=== PATIENT | male | born 1945 | race Caucasian/White ===

== ENCOUNTER 2020-02-27 10:59 | Emergency (ER) | payer MEDICARE, SELFPAY ==
--- NOTE | 2020-02-27 11:06 | ED.EAR ---
HPI - Ear Problem General Chief complaint: Ear Stated complaint: Ear Ache Time Seen by Provider: 02/27/20 11:16 Source: patient and RN notes reviewed Mode of arrival: ambulatory Limitations: no limitations History of Present Illness HPI Narrative: 74-year-old male presents with concern for right ear pain. Also reports swelling beneath his right ear. He denies nasal congestion, rhinorrhea, discharge from the ear, decreased hearing. Reports the swelling gets larger after he eats, and gets smaller with a hot compress. He denies any drooling, difficulty swallowing, difficulty speaking, sore throat. MD Complaint: ear pain Related Data Allergies Allergy/AdvReac Type Severity Reaction Status Date / Time ciprofloxacin Allergy Intermediate RASH Verified 02/27/20 11:15 Review of Systems Review of Systems: Narrative: CONSTITUTIONAL: Denies malaise, chills, sweats, or fever. EYES: Denies visual changes, redness, or discharge. ENT: Denies rhinorrhea, congestion, sinus pain, difficulty swallowing, difficulty speaking, and sore throat. Reports right ear pain. Reports swelling beneath right ear with tenderness, redness CARDIOVASCULAR: Denies chest pain, palpitations, or edema. RESPIRATORY: Denies cough or dyspnea. GASTROINTESTINAL: Denies abdominal pain, nausea, vomiting, diarrhea SKIN: Denies rash or itching. MUSCULOSKELETAL: Denies myalgia. NEUROLOGIC: Denies headache. All systems reviewed & are unremarkable except as noted in HPI and below PMFSH Social History Social History Gender identity (if verbalized by the patient): Male Comments At time of signature, agree with nursing past medical, surgical, social and family history. There is no relevant family history pertinent to the presenting complaint Exam Narrative: Exam Narrative: GENERAL: Well-appearing, well-nourished, and in no acute distress. HEAD: Normocephalic EYES: PERRLA, conjunctivae clear ENT: Nares clear, turbinates pink, no discharge. Mucous membranes moist. TM pearly savage with sharp light reflex bilaterally; no tragal tenderness. Oropharynx not erythematous without lesions. Right tonsils enlarged and without exudate, no drooling, no hoarseness, no trismus, uvula midline. NECK: Supple. Right parotid swelling, tenderness, mild erythema CHEST: Clear to auscultation, breath sounds equal. No wheezing, rhonchi, rales, or stridor. No respiratory distress, speaks in full sentences. HEART: Regular rate and rhythm. No murmur heard. SKIN: Warm, dry, no rash. NEURO: Alert and oriented x3. PSYCH: Normal mood and affect Course Course Emergency Course: Patient is aware of diagnosis, understands and agrees to treatment plan. Anticipatory guidance given. Patient agrees to follow-up as directed and is aware of reasons to seek care at the emergency department. Portions of this record may have been created with voice recognition software Vital Signs Vital signs: Vital Signs Temperature 99.4 F 02/27/20 11:11 Pulse Rate 110 H 02/27/20 11:11 Respiratory Rate 16 02/27/20 11:11 Blood Pressure 137/98 H 02/27/20 11:11 Pulse Oximetry 96 02/27/20 11:11 Temperature 99.4 F 02/27/20 11:11 Pulse Rate 110 H 02/27/20 11:11 Respiratory Rate 16 02/27/20 11:11 Blood Pressure 137/98 H 02/27/20 11:11 Pulse Oximetry 96 02/27/20 11:11 Reviewed. Medical Decision Making MDM Narrative Medical decision making narrative: Differential diagnosis considered: Parotiditis, parotid gland obstruction, Lora virus, strep pharyngitis, allergic rhinitis, upper respiratory tract infection, sinusitis, rhinosinusitis, nasopharyngitis. viral pharyngitis, otitis media, otitis externa, pneumonia, bronchitis, viral cough syndrome, viral syndrome, and influenza. Exam findings show no acute concerns or changes; patient is non-toxic appearing and is in no distress. Patient is appropriate for outpatient treatment and follow-up. Vital Signs Vital Signs: Vital Signs Temperature 99.4 F 1
[2020-02-27 11:11] VITALS: BP 137/98; PULSE 110; RESP 16; TEMP 37.4; O2SAT 96
== END 2020-02-27 11:26 | disposition home or self-care (01) ==
LOC: EXPCOLL 11:05
PROVIDERS: Emergency Provider Nurse Practitioner; PCP Family Medicine
DX: K11.8 Other diseases of salivary glands (principal); I25.2 Old myocardial infarction; Z95.5 Presence of coronary angioplasty implant and graft
CPT/HCPCS: 99213; G0463

== ENCOUNTER 2020-06-08 16:00 | Emergency (ER) | payer MEDICARE, SELFPAY | END 2020-06-08 16:20 | disposition left against medical advice (07) | LOC: EXPCOLL 16:04 | PROVIDERS: Emergency Provider Nurse Practitioner; PCP Family Medicine | DX: Z53.21 Procedure and treatment not carried out due to patient leaving prior to being seen by health care provider (principal) | CPT/HCPCS: 99199 ==

== ENCOUNTER 2020-06-08 16:44 | Emergency (ER) | payer MEDICARE, SELFPAY ==
[2020-06-08] VITALS (18 sets, daily range): BP systolic 126–188; BP diastolic 62–112; PULSE 75–101; RESP 15–23; TEMP 36.8; O2SAT 96–100
--- NOTE | 2020-06-08 16:55 | ECG_ITS ---
Measurements Intervals [place] Rate: 94 P: 55 DC: 185 QRS: 40 QRSD: 98 T: 63 QT: 350 QTc: 438 Interpretive Statements SINUS RHYTHM BASELINE ARTIFACT- AVL NORMAL ECG Electronically Signed On 06-08-2020 17:23:14 HEEL CASER by Kirt Aly D.O.
[2020-06-08] MEDS: hydroCHLOROthiazide 25 MG TABLET PO (17:13)
[2020-06-08] MEDS: amLODIPine BESYLATE 5 MG TABLET 10 MG PO (17:13)
--- NOTE | 2020-06-08 17:16 | ED.GENADULT ---
HPI - General Adult General Chief complaint: Recheck/Abnormal Lab/Rx Stated complaint: high blood pressure Time Seen by Provider: 06/08/20 16:47 Source: patient History of Present Illness HPI narrative: Patient is 74 y/o male complaining of hypertension. He states that he was checking this BP and it was 160s systolic before he came to the hospital. He states that he feels well otherwise. He denies any chest pain, SOB or headache. He states that he was on some BP medication but stopped taking them a few months ago because he was having side effects. Related Data Allergies Allergy/AdvReac Type Severity Reaction Status Date / Time ciprofloxacin Allergy Intermediate RASH Verified 02/27/20 11:15 Review of Systems Constitutional: Constitutional: Denies chills, Denies fever(s), Denies headache(s) and Denies weakness Eyes: Eyes: Denies blurry vision ENT: Denies headache(s) and Denies neck pain Cardiovascular: Cardiovascular: Denies chest pain and Denies dyspnea Respiratory: Respiratory: Denies cough and Denies dyspnea Gastrointestinal: Gastrointestinal: Denies abdominal pain, Denies diarrhea, Denies nausea and Denies vomiting Genitourinary: Genitourinary: Denies hematuria and Denies dysuria Musculoskeletal: Musculoskeletal: Denies back pain and Denies neck pain Neurologic: Denies headache(s) and Denies weakness PMFSH Social History Social History Gender identity (if verbalized by the patient): Male Exam Const: General: no acute distress and well developed Orientation/consciousness: oriented to person, oriented to place, oriented to time and patient oriented x3 HENMT: Head: normocephalic Ears: external ears normal General nose exam: Normal external nose present Eyes: General: appearance normal, both eyes and all related structures Conjunctivae: conjunctivae normal Neck: Neck: normal visual inspection and full ROM Chest: Chest palpation & inspection: normal inspection of the chest and no tenderness Resp: Effort & Inspection: normal respiratory effort Auscultation: clear to auscultation bilaterally Cardio: Rate: regular rate Rhythm: regular rhythm GI: GI Palp: No abdominal tenderness and Yes Soft to palpation Skin: General skin exam: normal color and turgor normal Neuro: General: oriented to person, oriented to place, oriented to time and patient oriented x3 Cognition (Neuro): normal cognition Extrem: General: normal to inspection, full ROM and no pedal edema Psych: Appearance: grossly normal Mental Status: mental status grossly normal Affect: normal affect Course Vital Signs Vital signs: Vital Signs Temperature 36.8 C 06/08/20 16:50 Pulse Rate 101 H 06/08/20 16:50 Respiratory Rate 18 06/08/20 16:50 Blood Pressure 188/112 H 06/08/20 16:50 Pulse Oximetry 98 06/08/20 16:50 Temperature 36.8 C 06/08/20 16:50 Pulse Rate 78 06/08/20 20:41 Respiratory Rate 20 06/08/20 20:41 Blood Pressure 138/62 06/08/20 20:41 Pulse Oximetry 99 06/08/20 20:41 Medical Decision Making Vital Signs Vital Signs: Vital Signs Temperature 36.8 C 06/08/20 16:50 Pulse Rate 101 H 06/08/20 16:50 Respiratory Rate 18 06/08/20 16:50 Blood Pressure 188/112 H 06/08/20 16:50 Pulse Oximetry 98 06/08/20 16:50 Temperature 36.8 C 06/08/20 16:50 Pulse Rate 78 06/08/20 20:41 Respiratory Rate 20 06/08/20 20:41 Blood Pressure 138/62 06/08/20 20:41 Pulse Oximetry 99 06/08/20 20:41 Lab Data Result diagrams: 06/08/20 17:03 06/08/20 17:03 Labs: Lab Results 06/08/20 06/08/20 Range/Units 17:03 17:03 WBC 11.8 H (4.5-10.0) K/mm3 RBC 4.94 (4.6-6.20) M/mm3 Hgb 15.3 (14.0-18.0) g/dL Hct 45.4 (42.0-52.0) % MCV 91.9 (80-100) fl MCH 31.0 (26-34) pg MCHC 33.7 (32-36) g/dl RDW 13.5 (11.5-14.5) % Plt Count 229 (150-375) k/mm3 MPV 10.6 H (7.4-10.4
[2020-06-08 17:23] LABS: Basophils Absolute Auto 0.1 K/mm3 (0.0-0.1); Basophils Percent Auto 0.4 % (0.2-1.2); Eosinophils Absolute Auto 0.4 K/mm3 (0-0.3); Eosinophils Percent Auto 3.5 % (0-4.4); Hematocrit 45.4 % (42.0-52.0); Hemoglobin 15.3 g/dL (14.0-18.0); Immature Granulocyte Absolute 0.06 K/mm3 (0.00-0.031); Immature Granulocyte Percent A 0.5 % (0-0.5); Lymphocytes Absolute Auto 2.18 K/mm3 (0.9-3.2); Lymphocytes Percent Auto 18.6 % (18.3-44.2); Mean Corpuscular HGB Conc 33.7 g/dl (32-36); Mean Corpuscular Volume 91.9 fl (80-100); Mean Platelet Volume 10.6 fl (7.4-10.4); Monocytes Percent Auto 8.3 % (2.6-8.5); Neutrophils Absolute Auto 8.1 K/mm3 (1.3-6.7); Neutrophils Percent Auto 68.7 % (45.5-73.1); Platelet Count Result 229 k/mm3 (150-375); Red Blood Count 4.94 M/mm3 (4.6-6.20); Red Cell Distribution Width 13.5 % (11.5-14.5); White Blood Count 11.8 K/mm3 (4.5-10.0)
[2020-06-08 17:24] LABS: Anion Gap 5 mmol/L (8-16); Blood Urea Nitrogen 18 mg/dL (9-20); Calcium 8.3 mg/dL (8.4-10.2); Carbon Dioxide 29 mmol/L (22-30); Chloride 103 mmol/L (98-107); Estimated CRCL calculation 68 ml/min; Estimated Glomerular Filt Rate > 60; Glucose 126 mg/dL (75-110); Potassium 3.8 mmol/L (3.4-5.0); Sodium 137 mmol/L (137-145)
== END 2020-06-08 20:43 | disposition home or self-care (01) ==
PROVIDERS: Emergency Provider Emergency Medicine; PCP Family Medicine
DX: I10 Essential (primary) hypertension (principal)
CPT/HCPCS: 36415; 80048; 85025; 93005; 99283; A9270

== ENCOUNTER 2021-12-01 14:42 | Outpatient (CLI) | payer MEDICARE, SELFPAY ==
--- NOTE | 2021-12-01 | ECG_ITS ---
Measurements Intervals [place] Rate: 84 P: 70 [place]: 187 QRS: 46 QRSD: 95 T: 72 QT: 358 QTc: 424 Interpretive Statements SINUS RHYTHM EARLY PRECORDIAL R/S TRANSITION BASELINE WANDER- AVR, AVL, AVF BORDERLINE ECG Electronically Signed On 12-01-2021 15:31:26 CDT by Kirt Aly D.O.
== END 2021-12-01 14:43 | disposition home or self-care (01) ==
PROVIDERS: PCP Family Medicine; Visit Provider Nurse Practitioner Adult Health
DX: R42 Dizziness and giddiness (principal); I95.1 Orthostatic hypotension
CPT/HCPCS: 93005

== ENCOUNTER 2023-03-25 16:53 | Emergency (ER) | payer MEDICARE, SELFPAY ==
[2023-03-25] VITALS (8 sets, daily range): BP systolic 134–167; BP diastolic 81–98; PULSE 89–108; RESP 14–19; TEMP 36.4; O2SAT 95–98
--- NOTE | ~2023-03-25 | XR_ITS ---
EXAMINATION: XR chest 2V DATE: 03/25/2023 17:12 INDICATION: Chest pressure TECHNIQUE: frontal and lateral views of the chest were obtained. COMPARISON: Chest radiograph dated 06/21/2017 FINDINGS: Calcified nodules in the left lower lung zone and calcified left hilar lymph nodes consistent with ol d granulomatous disease. Minimal streaky bibasilar atelectasis/scarring. No marrow edema, pleural eff usion or pneumothorax. Heart size is normal. Tortuous thoracic aorta. Mild thoracic spondylosis. Left rotator cuff arthropathy. IMPRESSION: 1. Minimal streaky bibasilar atelectasis/scarring. No other acute cardiopulmonary disease. Reviewed, dictated and finalized at location A. IMPRESSION: 1. Minimal streaky bibasilar atelectasis/scarring. No other acute cardiopulmona ry disease.
--- NOTE | 2023-03-25 17:00 | ECG_ITS ---
Measurements Intervals [place] Rate: 95 P: 57 [place]: 186 QRS: 38 QRSD: 104 T: 61 QT: 343 QTc: 432 Interpretive Statements SINUS RHYTHM VENTRICULAR COUPLET AND VENTRICULAR PREMATURE COMPLEXES BORDERLINE ST ABNORMALITY- ANTEROLATERAL LEADS ABNORMAL ECG COMPARED TO ECG 12/01/2021 15:19:47 VENTRICULAR PREMATURE COMPLEXES NOW PRESENT Electronically Signed On 03-25-2023 18:41:32 CDT by Kirt Aly D.O.
[2023-03-25] MEDS: ASPIRIN 81 MG CHEWABLE TABLET 324 MG PO (17:05)
[2023-03-25 17:06] LABS: Basophils Absolute Auto 0.1 K/mm3 (0.0-0.1); Basophils Percent Auto 0.4 % (0.2-1.2); Eosinophils Absolute Auto 0.3 K/mm3 (0-0.3); Eosinophils Percent Auto 2.8 % (0-4.4); Hematocrit 44.2 % (42.0-52.0); Hemoglobin 14.8 g/dL (14.0-18.0); Immature Granulocyte Absolute 0.06 K/mm3 (0.00-0.031); Immature Granulocyte Percent A 0.5 % (0-0.5); Lymphocytes Absolute Auto 1.82 K/mm3 (0.9-3.2); Lymphocytes Percent Auto 15.4 % (18.3-44.2); Mean Corpuscular HGB Conc 33.5 g/dl (32-36); Mean Corpuscular Volume 92.5 fl (80-100); Mean Platelet Volume 10.9 fl (7.4-10.4); Monocytes Absolute Auto 0.9 K/mm3 (0.1-0.6); Monocytes Percent Auto 7.5 % (2.6-8.5); Neutrophils Absolute Auto 8.6 K/mm3 (1.3-6.7); Neutrophils Percent Auto 73.4 % (45.5-73.1); Platelet Count Result 176 k/mm3 (150-375); Red Blood Count 4.78 M/mm3 (4.6-6.20); Red Cell Distribution Width 13.5 % (11.5-14.5); White Blood Count 11.8 K/mm3 (4.5-10.0)
[2023-03-25 17:17] LABS: INR 1.1; Prothrombin Time 14.9 Seconds (11.1-14.7)
[2023-03-25 17:19] LABS: Alanine Aminotransferase 29 U/L (6-50); Albumin Level 4.2 g/dL (3.5-5.1); Alkaline Phosphatase 121 U/L (38-126); Anion Gap 10 mmol/L (8-16); Aspartate Amino Transferase 54 U/L (17-59); Bilirubin,Total 0.7 mg/dL (0.2-1.3); Blood Urea Nitrogen 28 mg/dL (9-20); Calcium 8.6 mg/dL (8.4-10.2); Carbon Dioxide 27 mmol/L (22-30); Chloride 102 mmol/L (98-107); Estimated CRCL calculation 43 ml/min; Estimated Glomerular Filt Rate 49; Glucose 128 mg/dL (65-110); Lipase 73 U/L (23-300); Potassium 3.9 mmol/L (3.4-5.0); Sodium 139 mmol/L (137-145)
[2023-03-25 17:30] LABS: Troponin I < 0.012 ng/mL (0.000-0.034)
--- NOTE | 2023-03-25 18:32 | ED.CHESTPAIN ---
HPI - Chest Pain General Chief Complaint: Chest Pain Stated Complaint: CP, subsided Time Seen by Provider: 03/25/23 17:15 Source: patient Mode of arrival: EMS Limitations: no limitations History of Present Illness HPI narrative: This is a 77-year-old male that presents to the emergency department for an episode of chest pressure today. Reports he was seated at home. He started to note some chest pressure. Reports he felt like he needed to belch. He took some [place]. His symptoms were eventually relieved over about 30 minutes. He called EMS for further evaluation. He denies any current symptoms. Denies shortness of breath or lower extremity edema. Related Data Allergies Allergy/AdvReac Type Severity Reaction Status Date / Time ciprofloxacin Allergy Intermediate RASH Verified 03/25/23 16:59 Review of Systems Review of Systems: CONSTITUTIONAL: Denies fever CARDIOVASCULAR: Reports chest pain. Denies edema RESPIRATORY: Denies dyspnea. All systems reviewed & are unremarkable except as noted in HPI and below PMFSH Past Medical History Medical History (Updated 03/25/23 @ 21:03 by Tayla Bartlett PA-C) History of coronary artery disease Social History Social History (Updated 03/25/23 @ 18:34 by Tayla Bartlett PA-C) Alcohol intake: former Gender identity (if verbalized by the patient): Male Exam Narrative: GENERAL: Well-appearing, well-nourished, and in no acute distress. HEAD: Normocephalic, atraumatic. EYES: EOMI. NECK: Supple. No JVD CHEST: Clear to auscultation. No respiratory distress. No wheezes rales or rhonchi HEART: Regular rate and rhythm. No murmur heard. Normal peripheral pulses. EXTREMITIES: Normal range of motion. No edema. SKIN: Warm, dry, no rash. NEURO: No focal deficits. Alert and oriented x3. PSYCH: Normal mood and affect Course Course Emergency Course: Patient was updated on workup and recommendation for admission for further evaluation of his symptoms. He declines to be admitted at this time Vital Signs Vital signs: Vital Signs Temperature 97.6 F 03/25/23 16:51 Pulse Rate 108 H 03/25/23 16:51 Respiratory Rate 16 03/25/23 16:51 Blood Pressure 160/87 H 03/25/23 16:51 Pulse Oximetry 98 03/25/23 16:51 Oxygen Delivery Room Air 03/25/23 16:51 Temperature 97.6 F 03/25/23 16:51 Pulse Rate 93 03/25/23 20:35 Respiratory Rate 15 03/25/23 20:35 Blood Pressure 167/95 H 03/25/23 20:35 Pulse Oximetry 96 03/25/23 20:35 Oxygen Delivery Room Air 03/25/23 16:51 MDM - Chest Pain MDM Narrative Medical decision making narrative: Patient presents to the emergency department for an episode of chest pain today. Patient with history of coronary artery disease. Tachycardic upon arrival, this normalized without intervention. Also hypertensive in the 160s systolic. No active chest pain while in the ED. CBC with mild leukocytosis to 11.8. Metabolic panel with mild elevation in creatinine to 1.4. EKG without acute ST changes and baseline and 3-hour troponin are negative. Chest x-ray without acute cardiopulmonary normality. Patient was updated on work-up. I did recommend that he be admitted for further evaluation due to his symptoms and history of coronary artery disease. Patient declines to be admitted at this time. I instructed him he should have close follow-up with his professional advisor for further evaluation. He also reported upon re-evaluation that he has been struggling with an abscessed tooth for some time. This is actively draining. I did take a culture. We will start patient on oral antibiotics. Was instructed to follow-up with his professional advisor and a dentist. He was encouraged to return to the ER at any time for further evaluation and management Differential Diagnosis Differential diagnosis: Likely stable angina, unstable angina pectoris, atypical chest pain and other (GERD) Lab Data Attestation: I reviewed the patient's lab results.
--- NOTE | 2023-03-25 19:16 | PC.NURSE ---
Assumed care of pt from BELKYS Friend at this time.
[2023-03-25 20:28] LABS: Troponin I < 0.012 ng/mL (0.000-0.034)
== END 2023-03-25 21:22 | disposition home or self-care (01) ==
PROVIDERS: Emergency Medicine; Emergency Provider Physician Assistant; PCP Family Medicine
DX: R07.89 Other chest pain (principal); K04.7 Periapical abscess without sinus; I25.10 Atherosclerotic heart disease of native coronary artery without angina pectoris; I49.3 Ventricular premature depolarization; R00.8 Other abnormalities of heart beat; R94.31 Abnormal electrocardiogram [ECG] [EKG]
CPT/HCPCS: 36415; 71046; 80053; 83690; 84484; 85025; 85610; 85730; 87070; 87205; 93005; 99284; A9270

== ENCOUNTER 2024-08-03 09:01 | Emergency (ER) | payer MEDICARE, SELFPAY ==
--- NOTE | ~2024-08-03 | XR_ITS ---
Clinical Indication: Cough PA and lateral views of the chest: Comparison: 03/25/2023 Findings: Calcified left basilar granuloma present. The lungs are otherwise clear, without evidence o f focal consolidation or pleural effusion. Cardiomediastinal silhouette is within normal limits. Bon es and soft tissues are unremarkable. Impression: No acute abnormality. Reviewed, dictated and finalized at location . Impression: No acute abnormality.
--- NOTE | ~2024-08-03 | XR_ITS ---
Supine and upright views of the abdomen Clinical history: Abdominal bloating Findings: Bowel gas pattern is nonspecific. No evidence for obstruction or free air. Probable left-si ded bowel contents, versus left-sided renal stones. Cholecystectomy clips noted. There is dextroscoli osis of the lumbar spine with diffuse degenerative disc disease. Impression: Possible left-sided renal stones versus bowel contents or other soft tissue calcific effusions. No acute reality evident. Reviewed, dictated and finalized at location . Impression: Possible left-sided renal stones versus bowel contents or other soft tissue chapito cific effusions. No acute reality evident.
[2024-08-03 09:13] VITALS: BP 159/106; PULSE 94; RESP 18; TEMP 36.5; O2SAT 97
--- NOTE | 2024-08-03 09:16 | ED.URI ---
HPI - URI/Sore Throat General Chief Complaint: Upper Respiratory Infection Stated Complaint: Sinus Time Seen by Provider: 08/03/24 09:16 Source: patient Mode of arrival: ambulatory Limitations: no limitations History of Present Illness HPI Narrative: 78-year-old male presents with complaint of abdominal bloating, feels full quickly when eating. Was able to have a bowel movement yesterday. States after eating breakfast today he is feeling of full again. Feels like he needs to belch but can not. Started with runny nose and cough 2-3 days ago. Afebrile. No chest pain or shortness of breath. Ambulatory with steady gait. All systems reviewed and negative except as noted above. Related Data Allergies Allergy/AdvReac Type Severity Reaction Status Date / Time ciprofloxacin Allergy Intermediate RASH Verified 08/03/24 09:19 Review of Systems Review of Systems: CONSTITUTIONAL: Denies fever, chills, or sweats. EYES: Denies visual changes, redness, or discharge. ENT: reports rhinorrhea. Denies congestion, sore throat, or otalgia. CARDIOVASCULAR: Denies chest pain, palpitations, or edema. RESPIRATORY: reports cough. Denies dyspnea. GASTROINTESTINAL: Reports abdominal bloating, constipation. Denies nausea, vomiting, or diarrhea. GENITOURINARY: Denies dysuria or hematuria. SKIN: Denies rash or itching. MUSCULOSKELETAL: Denies back pain, joint pain, or myalgia. NEUROLOGIC: Denies headache, numbness, or weakness. PSYCHIATRIC: Denies anxiety or depression. All other systems reviewed are negative, except as documented in HPI. [facility] Past Medical History Medical History (Updated 08/03/24 @ 09:56 by Marivel Vela NP) History of coronary artery disease Social History Social History (Updated 03/25/23 @ 18:34 by Tayla Bartlett PA-C) Alcohol intake: former Gender identity (if verbalized by the patient): Male Comments At time of signature, agree with nursing past medical, surgical, social and family history. There is no relevant family history pertinent to the presenting complaint. Exam Narrative: GENERAL: This is a well-nourished, well-developed patient, in no apparent distress. HEAD: normocephalic, atraumatic. EYES: PERRL. Sclera clear/white. Vision is grossly intact. EARS: External ears normal, auditory canals clear and without drainage, TMs normal without perforation. Hearing grossly intact. NOSE: External nose normal with clear nasal drainage THROAT: Mucous membranes moist, posterior pharynx clear. NECK: Neck supple, non-tender without lymphadenopathy, masses or thyromegaly. CARDIOVASCULAR: Regular rate and rhythm without murmurs, gallops, or rubs. RESPIRATORY: Clear to auscultation. Breath sounds equal bilaterally. No wheezes, rales, or rhonchi. GASTROINTESTINAL: Abdomen soft, non-tender, nondistended. Bowel sounds are hyperactive. No hepato-splenomegaly, or palpable masses. No guarding. SKIN: warm, Dry, intact with no suspicious lesions or rash, good texture and turgor. NEURO: awake, alert, and oriented to person, place and time. There were no obvious focal neurologic abnormalities. EXTREMITIES: No joint tenderness, effusion, or edema noted. Course Course Level of Care: Express Care Visit Vital Signs Vital signs: Vital Signs Temperature 36.5 C 08/03/24 09:13 Pulse Rate 94 08/03/24 09:13 Respiratory Rate 18 08/03/24 09:13 Blood Pressure 159/106 H 08/03/24 09:13 Pulse Oximetry 97 08/03/24 09:13 Oxygen Delivery Room Air 08/03/24 09:13 Temperature 36.5 C 08/03/24 09:13 Pulse Rate 94 08/03/24 09:13 Respiratory Rate 18 08/03/24 09:13 Blood Pressure 159/106 H 08/03/24 09:13 Pulse Oximetry 97 08/03/24 09:13 Oxygen Delivery Room Air 08/03/24 09:13 reviewed MDM - URI/Sore Throat MDM Narrative Medical decision making narrative: discussed x-ray results with patient. Viewed his KUB myself there is a large amount of stool present. Will prescribe MiraLax and stool softener. Will give simethicone for gas pain. Lungs clear to auscultation. No pain distress. Patient is alert, nontoxic. Recommend follow-up with If symptoms not improving. Please be advised this is a medical document. It is intended for [id number] communication. It is written in medical language and may contain unfamiliar abbreviations or verbiage. Medical documents are intended to carry relevant information, facts as evident, and the clinical opinion of the practitioner at the time of the encounter. This report may have been done utilizing a voice recognition system. Attempts have been made to correct errors. However, there may be uncorrected grammatical, spelling, and recognition errors present. The file time of this note does not necessarily represent the time of service. Lab Data Labs: Lab Results 08/03/24 Range/Units 09:43 POC Influenza A Ag Negative (Negative) POC Influenza B Ag Negative (Negative) POC SARS CoV-2 Ag Negative (Negative) Imaging Data My impression: agree with radiologist Radiologist's impression: Supine and upright views of the abdomen Clinical history: Abdominal bloating Findings: Bowel gas pattern is nonspecific. No evidence for obstruction or free air. Probable left-sided bowel contents, versus left-sided renal stones. Cholecystectomy clips noted. There is dextroscoliosis of the lumbar spine with diffuse degenerative disc disease. Impression: Possible left-sided renal stones versus bowel contents or other soft tissue calcific effusions. No acute reality evident. Discharge Plan Discharge Clinical Impression: Acute constipation, Acute viral sinusitis Patient Disposition: Home, Self-Care Condition: Stable Instructions: Antibiotic Form Additional Instructions: the x-ray of your abdomen showed constipation. The x-ray of your chest was normal. Take stool softener and MiraLax to treat constipation. Take Gas-X as needed to treat gas pains. Your cough and runny nose are viral. See your doctor if symptoms are not improving. Patient Language: Hebrew Prescriptions: New polyethylene glycol 3350 [Miralax] 17 gram/dose powder 17 g PO DAILY 4 Days Qty: 119 0RF docusate sodium [Stool Softener] 100 mg capsule 100 mg PO BID 30 Days Qty: 60 0RF benzonatate 200 mg capsule 200 mg PO TID PRN (Reason: cough) Qty: 20 0RF simethicone [Gas-X Extra Strength] 125 mg capsule 125 mg PO BID PRN (Reason: gas pain) Qty: 30 0RF Follow-up/Referrals: Magdi Booker MD [Primary Care Provider] - Time of Disposition: 09:56
[2024-08-03 09:45] LABS: EDCOVIDSCREEN Negative (Negative); EDINFLUASCREEN Negative (Negative); EDINFLUBSCREEN Negative (Negative)
== END 2024-08-03 10:08 | disposition home or self-care (01) ==
PROVIDERS: Emergency Provider Nurse Practitioner Family; PCP Family Medicine
DX: K59.00 Constipation, unspecified (principal); J01.90 Acute sinusitis, unspecified; Z20.822 Contact with and (suspected) exposure to COVID-19; I25.10 Atherosclerotic heart disease of native coronary artery without angina pectoris
CPT/HCPCS: 71046; 74018; 87426; 87804; 99213; G0463

== ENCOUNTER 2024-09-18 09:36 | Outpatient (CLI) | payer MEDICARE, SELFPAY ==
--- NOTE | ~2024-09-18 | CT_ITS ---
EXAMINATION: CT abdomen pelvis w con DATE: 09/18/2024 16:00 INDICATION: Epigastric pain. Elevated alkaline phosphatase and L2 levels. TECHNIQUE: Computed tomography (CT) of the abdomen and pelvis was performed with 100 mL Omnipaque-350 intravenous contrast. Automated exposure control and iterative reconstruction technique were employe d. The dose-length product was 390.71 mGy-cm. COMPARISON: None FINDINGS: Clinical scarring with mild bronchiectatic change at the posterior basilar segment of the right lower lobe along side the tortuous descending thoracic aorta. Calcified left lower lobe nodule consistent with old granulomatous disease. Heart size is normal. Atherosclerotic coronary artery calcific lesion . No pericardial or pleural effusion. 1.6 cm intraluminal nodular soft tissue density likely represen ting a large gallstone at the distal aspect of the common bile duct which is dilated to 2.1 cm in max imal diameter. There is moderate central intrahepatic biliary ductal dilation along with a tiny focus of pneumobilia in the nondependent left hepatic lobe. Cholecystectomy clips the gallbladder fossa. M ultiple splenic calcification consistent with old granulomatous disease. Pancreas and bilateral adren al glands are normal. There are multiple bilateral renal cysts measuring up to 2.8 cm in both kidneys . There is an additional 2.8 cm exophytic lesion at the interpolar region of the left kidney with sli ghtly higher density most likely proteinaceous/hemorrhagic cyst although solid neoplasm cannot be exc luded. 5.3 x 3.8 cm duodenal diverticulum arising anteriorly from the second portion the duodenum. Th ere are couple additional partially 4 cm diverticulum arising from the third portion of duodenum. The re is a fusiform infrarenal abdominal aortic aneurysm measuring up to 5.1 cm in maximal diameter. The re is calcified atherosclerosis without hematoma significant stenosis of the aorta and many of the ot her arteries. Small bowel and appendix are normal. There is marked colonic diverticulosis with a sigm oid and descending colon predominance and without adjacent inflammatory change to suggest diverticuli tis. A short loop of the proximal sigmoid colon extends into a moderate-sized left inguinal hernia. T here is a small fat-containing right inguinal hernia. Mild prostatomegaly with coarse calcifications. Bladder is normal. No free intraperitoneal gas or fluid. No pathologically enlarged abdominal or pel darnell lymphadenopathy. Lumbar levoscoliosis with severe spondylosis. 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 Moderate bilateral hip osteoart hritis. IMPRESSION: 1. Obstructing 1.6 cm likely gallstone at the distal common bile duct with moderate intra and extrahe patic biliary ductal dilation. 2. 5.1 cm fusiform infrarenal abdominal aortic aneurysm. 3. Short segment of nonobstructed proximal sigmoid colon extends into a moderate-sized left inguinal hernia. 4. Marked diverticulosis. 5. Multiple bilateral renal cysts with 2.8 cm exophytic lesion at the left kidney with slightly great er than simple fluid attenuation most likely proteinaceous/hemorrhagic cyst but would solid neoplasm could not be excluded. Could consider pre and postcontrast MRI or CT for further evaluation. Reviewed, dictated and finalized at location B. IMPRESSION: 1. Obstructing 1.6 cm likely gallstone at the distal common bile duct with mode rate intra and extrahepatic biliary ductal dilation. 2. 5.1 cm fusiform infrarenal abdominal aortic aneurysm. 3. Short segment of nonobstructed proximal sigmoid colon extends into a moderat e-sized left inguinal hernia. 4. Marked diverticulosis. 5. Multiple bilateral renal cysts with 2.8 cm exophytic lesion at the left kidn ey with slightly greater than simple fluid attenuation most likely proteinaceou s/hemorrhagic cyst but would solid neoplasm could not be excluded. Could consid er pre and postcontrast MRI or CT for further evaluation.
[2024-09-18 10:18] LABS: Hematocrit 41.6 % (42.0-52.0); Hemoglobin 13.5 g/dL (14.0-18.0); Mean Corpuscular HGB Conc 32.5 g/dl (32-36); Mean Corpuscular Volume 95.4 fl (80-100); Mean Platelet Volume 10.5 fl (7.4-10.4); Platelet Count Result 290 k/mm3 (150-375); Red Blood Count 4.36 M/mm3 (4.6-6.20); Red Cell Distribution Width 13.3 % (11.5-14.5); White Blood Count 9.3 K/mm3 (4.5-10.0)
--- OUTSIDE RECORDS SUMMARY | 2024-09-18 10:21 | XMS_ITS | Clinical Summary ---
Author Organization [facility] Address [address] [place] [id number] Care Team Providers Care Technical Services Representative Name Role Phone Magdi Booker MD Primary Care Provider [phone] Allergies Active Allergy Reactions Criticality Noted Date Comments Ciprofloxacin Medications rosuvastatin (CRESTOR) 5 mg tablet TAKE 1 TABLET(5 MG) BY MOUTH DAILY 90 tablet 3 09/22/2021 Active Active Problems Problem Noted Date Diagnosed Date History of coronary artery stent placement 04/07 Chronic coronary artery disease 09/30/2014 Common bile duct calculus 07/14/2014 Surgical History Surgery Date Site/Laterality Comments APPENDECTOMY GALLBLADDER SURGERY Medical History Medical History Date Comments Wears dentures Hyperlipidemia H/O angioplasty Gallstones Social History Tobacco Use Types Packs/Day Years Used Date Smoking Tobacco: Former Smokeless Tobacco: Never Alcohol Use Standard Drinks/Week Comments Not Currently 0 (1 standard drink = 0.6 oz pur e alcohol) Personal Safety Answer Date Recorded Getting School Help Needed Not on file Sex and Gender Information Value Date Recorded Sex Assigned at Not on file Legal Sex Male 11:59 PM [employer] Gender Identity Male 10/02/2020 9:14 PM CDT Sexual Orientation Straight 10/02/2020 9: 14 PM CDT Obstetrics History Last Filed Vital Signs Vital Sign Reading Time Taken Comments Blood Pressure 136/82 10/14/2021 8:31 AM CDT Pulse 98 10/14/2021 8:31 AM CDT Temperature - - Respiratory Rate - - Oxygen Saturation 96% 10/14/2021 8:31 AM CDT Inhaled Oxygen Concentration - - Weight 77.1 kg (170 lb) 10/14/2021 8:31 AM CDT Height 177.8 cm (5' 10 ) 10/14/2021 8:31 AM CDT Body Mass Index 24.39 10/14/2021 8:31 AM CDT Plan of Treatment Health Maintenance Due Date Last Done Comments Depression Screening 1945 Fall Risk Assessment 1945 Hepatitis C Screening 1945 DTaP/Tdap/Td Vaccine (1 - Tdap) 1957 Hepatitis B Screening 1964 Pneumococcal vaccine 65+ (1 of 2 - PCV) 1965 Zoster Vaccine (1 of 2) 1996 Abdominal Aortic Aneurysm (AAA) Screen 10/10/2011 Well Visit 65+ 10/10/2011 Influenza Vaccine (#1) 2024 Insurance [employer] GENER[employer] MEDICARE Care Teams Technical Services Representative Relationship Specialty Start Date End Date Magdi Booker MD PCP - General Family Medicine 03/11/20
--- OUTSIDE RECORDS SUMMARY | 2024-09-18 10:21 | XMS_ITS | Encounter Summary ---
Author Organization [facility] [place] [address] [place] [address] Care Team Providers Care Magisterial District Judge Name Role Phone Unavailable Primary Care Provider Unavailabl e Prior Encounters Date Type Department Care Team Description 09/21/2021 1:15 PM CDT Office Visit [facility] [address] [place] [address] Sammi Foster DDS Left without seen 08/24/2021 3:00 PM CDT Office Visit [facility] [address] [place] [address] Danisha Dimas, ROLY Last Filed Vital Signs Vital Sign Reading Time Taken Comments Blood Pressure 171/113 09/21/2021 2:06 PM CDT Pulse - - Temperature - - Respiratory Rate - - Oxygen Saturation - - Inhaled Oxygen Concentration - - Weight 74.8 kg (165 lb) 09/21/2021 2:03 PM CDT Height 177.8 cm (5' 10 ) 09/21/2021 2:03 PM CDT Body Mass Index 23.68 09/21/2021 2:03 PM CDT Plan of Treatment Not on file Procedures Procedure Name Priority Date/Time Associated Diagnosis Comments LIMITED ORAL EVALUATION - PROBLEM FOCUSED Routine 08/24/2021 3:00 PM CDT PANORAMIC RADIOGRAPHIC IMAGE Routine 08/24/2021 3:00 PM CDT BITEWING - SINGLE RADIOGRAPHIC IMAGE Routine 08/24/2021 3:00 PM CDT ADDITIONAL X-RAY Routine 08/24/2021 3:00 PM CDT SINGLE X-RAY Routine 08/24/2021 3:00 PM CDT Visit Diagnoses Not on file
--- OUTSIDE RECORDS SUMMARY | 2024-09-18 10:21 | XMS_ITS | Referral Summary ---
Author Organization [facility] Address [address] [place] [address] Care Team Providers Care Electroslag Welding Machine Operator Name Role Phone Magdi Booker MD Primary Care Provider [phone] Allergies Active Allergy Reactions Criticality Noted Date Comments Ciprofloxacin Medications rosuvastatin (CRESTOR) 5 mg tablet TAKE 1 TABLET(5 MG) BY MOUTH DAILY 90 tablet 3 09/22/2021 Active Active Problems Problem Noted Date Diagnosed Date History of coronary artery stent placement 04/07 Chronic coronary artery disease 09/30/2014 Common bile duct calculus 07/14/2014 Social History Tobacco Use Types Packs/Day Years Used Date Smoking Tobacco: Former Smokeless Tobacco: Never Alcohol Use Standard Drinks/Week Comments Not Currently 0 (1 standard drink = 0.6 oz pur e alcohol) Personal Safety Answer Date Recorded Getting School Help Needed Not on file Sex and Gender Information Value Date Recorded Sex Assigned at Not on file 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
--- OUTSIDE RECORDS SUMMARY | 2024-09-18 10:21 | XMS_ITS | Clinical Summary ---
Author Organization [facility] Address [id number] [place] [address] Care Team Providers Care Environmental Engineering Technician Name Role Phone Unavailable Primary Care Provider Unavailabl e Social History Tobacco Use Types Packs/Day Years Used Date Smoking Tobacco: Never Assessed Sex and Gender Information Value Date Recorded Sex Assigned at Not on file Legal Sex Male 5:09 PM CDT Gender Identity Not on file Sexual Orientation Not on file Plan of Treatment Health Maintenance Due Date Last Done Comments Hepatitis C 1963 DTaP, Tdap and Td Vaccines ( 1 - Tdap) 1965 Pneumococcal Vaccine: 50+ Ye ars (1 of 1 - PCV) 1996 Zoster Vaccines (1 of 2) 1996 RSV Immunization or 60+ Years (1 - 1-dose 75+ series) 2021 COVID-19 Vaccine ( - 2023-2 5 season) 2024 Meningococcal B Vaccine Aged Out No l onger eligible based on patient's age to complete this topic Meningococcal Vaccine Aged Out No judith itzel eligible based on patient's age to complete this topic RSV Immunizations Under 20 Months Aged Out No longer eligible based on patient's age to complete this topic
--- OUTSIDE RECORDS SUMMARY | 2024-09-18 10:21 | XMS_ITS | Clinical Summary ---
Author Organization [facility] Address [address] [facility] [place] [address] Care Team Providers Care Manager People Name Role Phone Unavailable Primary Care Provider Unavailabl e Allergies Active Allergy Reactions Criticality Noted Date Comments Ciprofloxacin Hives 08/24/2021 Medications amoxicillin-pot clavulanate (AUGMENTIN) 875-125 mg tablet Take 1 tablet by mouth in the morning and 1 tablet before bedtime. 2 Active predniSONE (DELTASONE) 20 mg tablet Take 20 mg by mouth 1 (one) time each day. 2 Active rosuvastatin (CRESTOR) 5 mg tablet 2 Active sildenafiL (VIAGRA) 100 mg tablet TAKE 1 TABLET BY MOUTH ONCE DAILY NEEDED 1 HOUR BEFORE SEXUAL ACTIVITY 2 Active Active Problems Problem Noted Date Diagnosed Date History of coronary artery stent placement 04/07 Chronic coronary artery disease 09/30/2014 Common bile duct calculus 07/14/2014 Social History Tobacco Use Types Packs/Day Years Used Date Smoking Tobacco: Never Assessed Sex and Gender Information Value Date Recorded Sex Assigned at Not on file Legal Sex Male 11:04 AM PDT Gender Identity Not on file Sexual Orientation Not on file Last Filed Vital Signs Vital Sign Reading [...] 09/21/2021 2:03 PM CDT Plan of Treatment Health Maintenance Due Date Last Done Comments Dental Prophylaxis 1945 Meningococcal B Vaccine Aged Out No l onger eligible based on patient's age to complete this topic
[2024-09-18 10:23] LABS: Alanine Aminotransferase 176 U/L (6-50); Albumin Level 4.1 g/dL (3.5-5.1); Alkaline Phosphatase 447 U/L (38-126); Anion Gap 10 mmol/L (4-12); Aspartate Amino Transferase 49 U/L (17-59); Blood Urea Nitrogen 28 mg/dL (9-20); Calcium 8.8 mg/dL (8.4-10.2); Carbon Dioxide 28 mmol/L (22-30); Chloride 103 mmol/L (98-107); Estimated Glomerular Filt Rate > 60; Glucose 115 mg/dL (65-110); Lipase 57 U/L (23-300); Sodium 141 mmol/L (137-145)
== END 2024-09-18 09:37 | disposition home or self-care (01) ==
PROVIDERS: PCP Family Medicine; Visit Provider Nurse Practitioner
DX: K83.1 Obstruction of bile duct (principal); K83.8 Other specified diseases of biliary tract; I71.43 Infrarenal abdominal aortic aneurysm, without rupture; K40.90 Unilateral inguinal hernia, without obstruction or gangrene, not specified as recurrent; K57.90 Diverticulosis of intestine, part unspecified, without perforation or abscess without bleeding; D49.512 Neoplasm of unspecified behavior of left kidney; N28.1 Cyst of kidney, acquired; R74.8 Abnormal levels of other serum enzymes
CPT/HCPCS: 36415; 74177; 80053; 83690; 85027; Q9967

== ENCOUNTER 2024-09-19 10:14 | Inpatient (IN) | payer MEDICARE, SELFPAY ==
--- NOTE | ~2024-09-19 | XR_ITS ---
INTRAOPERATIVE FLUOROSCOPY: CLINICAL HISTORY: 78 years old Male; ERCP SPHINCTEROTOMY STENT PROCEDURE COMMENTS: Limited intraoperative fluoroscopy of the right upper quadrant was performed. CUMULATIVE DOSE: 38 mGy FLUOROSCOPY TIME: 293 seconds FINDINGS/IMPRESSION: Please refer to operative note for further details. Reviewed, dictated and finalized at location A.
--- NOTE | ~2024-09-19 | XR_ITS ---
EXAMINATION: XR ERCP DATE: 09/23/2024 12:27 INDICATION: Choledocholithiasis TECHNIQUE: Multiple spot fluoroscopic images of the right upper quadrant were obtained during endosco pic retrograde cholangiopancreatography (ERCP) performed by Dr. Dieter Santos. Radiologist was not present for the imaging or procedure. The amount of fluoroscopy time used during this procedure was 1 .4 minutes. Total DAP was 0.57 mGycm^2. COMPARISON: 09/20/2024 FINDINGS: Images demonstrate cannulation and retrograde contrast injection into the common bile duct which appe ars dilated. There is a meniscus in the mid common bile duct suggesting obstructing stone. A wire is advanced around the suspected stone into the noncontrast opacified portions of the more proximal comm on bile duct. The obstructing stone is not visualized on subsequent images, potentially extracted wit h contrast now extending to the more proximal common bile duct and central intrahepatic biliary tree. Cholecystectomy clips in the right upper quadrant. IMPRESSION: 1. Fluoroscopy utilized during likely extraction of an obstructing common bile duct stone. Please re joni to the ERCP procedure note for additional details. Reviewed, dictated and finalized at location A. IMPRESSION: 1. Fluoroscopy utilized during likely extraction of an obstructing common bile duct stone. Please refer to the ERCP procedure note for additional details.
[2024-09-19 10:35] VITALS: BP 152/89; PULSE 85; RESP 16; TEMP 36.6; O2SAT 96
--- NOTE | 2024-09-19 10:54 | ED_ITS ---
HPI - General Adult General Chief complaint: Abdominal Pain Stated complaint: DC yesterday has gallstone Time Seen by Provider: 09/19/24 10:21 History of Present Illness HPI narrative: Patient 78-year-old gentleman who presents emergency department with chief complaint of abdominal pain. Patient reports he has epigastric pain reports that is intermittent and flares up at times patient states his pain is currently doing much better reports he was seen in the GI clinic yesterday and was found to have a 1.[address] scan Related Data Allergies Allergy/AdvReac Type Severity Reaction Status Date / Time ciprofloxacin Allergy Intermediate RASH Verified 09/19/24 10:15 Review of Systems 2 Review of Systems: A 10 system review of systems was completed on the patient and is negative except for what is stated in the HPI. Nursing and ancillary documentation was reviewed. [facility] Past Medical History Medical History History of coronary artery disease Social History Social History Alcohol intake: former Gender identity (if verbalized by the patient): Male Exam 2 Narrative: GENERAL: Well-appearing, well-nourished, and in no acute distress. HEAD: Normocephalic, atraumatic. EYES: PERRLA and EOMI. ENT: Nares clear, no rhinorrhea or epistaxis. Mucous membranes moist. NECK: Supple. CHEST: Clear to auscultation. No respiratory distress. HEART: Regular rate and rhythm. No murmur heard. Normal peripheral pulses. ABDOMEN: Soft, nontender, nondistended, normal active bowel sounds. EXTREMITIES: Normal range of motion. No edema. SKIN: Warm, dry, no rash. NEURO: No focal deficits. Alert and oriented x3. PSYCH: Normal mood and affect. Course Vital Signs Vital signs: Vital Signs Temperature 36.6 C 09/19/24 10:35 Pulse Rate 85 09/19/24 10:35 Respiratory Rate 16 09/19/24 10:35 Blood Pressure 152/89 H 09/19/24 10:35 Pulse Oximetry 96 09/19/24 10:35 Oxygen Delivery Room Air 09/19/24 10:35 Temperature 36.6 C 09/19/24 10:35 Pulse Rate 85 09/19/24 10:35 Respiratory Rate 16 09/19/24 10:35 Blood Pressure 152/89 H 09/19/24 10:35 Pulse Oximetry 96 09/19/24 10:35 Oxygen Delivery Room Air 09/19/24 10:35 Medical Decision Making Vital Signs Vital Signs: Vital Signs Temperature 36.6 C 09/19/24 10:35 Pulse Rate 85 09/19/24 10:35 Respiratory Rate 16 09/19/24 10:35 Blood Pressure 152/89 H 09/19/24 10:35 Pulse Oximetry 96 09/19/24 10:35 Oxygen Delivery Room Air 09/19/24 10:35 Temperature 36.6 C 09/19/24 10:35 Pulse Rate 85 09/19/24 10:35 Respiratory Rate 16 09/19/24 10:35 Blood Pressure 152/89 H 09/19/24 10:35 Pulse Oximetry 96 09/19/24 10:35 Oxygen Delivery Room Air 09/19/24 10:35 Lab Data 09/19/24 10:55 09/19/24 11:07 Labs: Lab Results 09/19/24 09/19/24 Range/Units 10:55 11:07 WBC 8.6 (4.5-10.0) K/mm3 RBC 4.26 L (4.6-6.20) M/mm3 Hgb 13.1 L (14.0-18.0) g/dL Hct 41.1 L (42.0-52.0) % MCV 96.5 (80-100) fl MCH 30.8 (26-34) pg MCHC 31.9 L (32-36) g/dl RDW 13.4 (11.5-14.5) % Plt Count 276 (150-375) k/mm3 MPV 10.6 H (7.4-10.4) fl Immature Gran % (Auto) 0.9 H (0-0.5) % Neut % (Auto) 69.1 (45.5-73.1) % Lymph % (Auto) 15.5 L (18.3-44.2) % [place] % (Auto) 12.7 H (2.6-8.5) % Eos % (Auto) 1.1 (0-4.4) % Baso % (Auto) 0.7 (0.2-1.2) % Lymph # (Auto) 1.33 (0.9-3.2) K/mm3 [place] # (Auto) 1.1 H (0.1-0.6) K/mm3 Eos # (Auto) 0.1 (0-0.3) K/mm3 Baso # (Auto) 0.1 (0.0-0.1) K/mm3 Abs Immat Gran (auto) 0.08 H (0.00-0.031) K/mm3 Absolute Neuts (auto) 5.9 (1.3-6.7) K/mm3 Absolute Nucleated RBC 0.000 (0.0-0.012) K/mm3 Nucleated RBC % 0.0 (0.0-0.2) % PT Pending INR Pending APTT Pending Sodium 138 (137-145) mmol/L Potassium 4.5 (3.4-5.0) mmol/L Chloride 102 (98-107) mmol/L Carbon Dioxide 29 (22-30) mmol/L Anion Gap 7 (4-12) mmol/L BUN 22 H (9-20) mg/dL Creatinine 1.01 (0.7-1.3) mg/dL Estim Creat Clear Calc 52 ml/min Estimated GFR > 60 (59 - ) Glucose 136 H (65-110) mg/dL Calcium 9.0 (8.4-10.2) mg/dL Total Bilirubin 1.7 H (0.2-1.3) mg/dL AST 61 H (17-59) U/L ALT 130 H (6-50) U/L Alkaline Phosphatase 533 H (38-126) U/L Total Protein 7.0 (6.3-8.2) g/dL Albumin 3.6 (3.5-5.1) g/dL Lipase 70 (23-300) U/L Urine Color Yellow (Yellow) Urine Appearance Clear (Clear) Urine pH 6.0 (5.0-9.0) Ur Specific [place] 1.024 (1.001-1.035) Urine Protein 1+ H (Negative) mg/dL Urine Glucose (UA) Negative (Negative) mg/dL Urine Ketones Negative (Negative) mg/dL Ur Blood (Man) Negative (Negative) Urine Nitrate Negative (Negative) Urine Bilirubin Negative (Negative) Urine Urobilinogen 1.0 (<2.0) mg/dL Leukocyte Esterase Rfl Trace H (Negative) JUAN/UL Urine RBC 0-2 (0-2) /hpf Urine WBC 0-5 (0-3) /hpf Ur Squamous Epith Cells None seen (Few) /hpf Urine Bacteria None seen /hpf Urine Casts 0-2 Discharge Plan Discharge Clinical Impression: Gallstone of bile duct with obstruction, Abdominal pain Patient Disposition: Still a Patient Condition: Stable Instructions: Antibiotic Form Patient Language: Mohawk Prescriptions: No Action polyethylene glycol 3350 [Miralax] 17 gram/dose powder 17 g PO DAILY 4 Days Qty: 119 0RF docusate sodium [Stool Softener] 100 mg capsule 100 mg PO BID 30 Days Qty: 60 0RF benzonatate 200 mg capsule 200 mg PO TID PRN (Reason: cough) Qty: 20 0RF simethicone [Gas-X Extra Strength] 125 mg capsule 125 mg PO BID PRN (Reason: gas pain) Qty: 30 0RF pantoprazole 40 mg tablet,delayed release (DR/EC) 40 mg PO BID Qty: 60 3RF Rx Instructions: take 30 min prior to eating sucralfate [Carafate] 1 gram tablet 1 g PO ACHS Qty: 120 0RF Follow-up/Referrals: Magdi Booker MD [Primary Care Provider] - Time of Disposition: 12:33
[2024-09-19] MEDS: ONDANSETRON INJ 4 MG/2 ML VIAL IV PUSH (10:59)
--- OUTSIDE RECORDS SUMMARY | 2024-09-19 11:00 | XMS_ITS | Encounter Summary ---
Author Organization [facility] [place] [address] [place] [address] Care Team Providers Care Industrial Retrofit Designer Name Role Phone Unavailable Primary Care Provider Unavailabl e Prior Encounters Date Type Department Care Team Description 09/21/2021 1:15 PM CDT Office Visit [facility] [address] [place] [address] Sammi Foster DDS Left without seen 08/24/2021 3:00 PM CDT Office Visit [facility] [address] [place] [address] Danisha Dimas, ROLY Last Filed [...]
--- OUTSIDE RECORDS SUMMARY | 2024-09-19 11:00 | XMS_ITS | Clinical Summary ---
Author Organization [facility] Address [facility] [place] [address] Care Team Providers Care Ballet Master/Mistress Name Role Phone Unavailable Primary Care Provider [...]
--- OUTSIDE RECORDS SUMMARY | 2024-09-19 11:00 | XMS_ITS | Clinical Summary ---
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
--- OUTSIDE RECORDS SUMMARY | 2024-09-19 11:00 | XMS_ITS | Clinical Summary ---
Author Organization [facility] [place] [address] [place] [address] Care Team Providers Care Supervisor Weaving Name Role Phone Unavailable Primary Care Provider [...]
--- OUTSIDE RECORDS SUMMARY | 2024-09-19 11:00 | XMS_ITS | Referral Summary ---
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
[2024-09-19 11:01] LABS: Basophils Absolute Auto 0.1 K/mm3 (0.0-0.1); Basophils Percent Auto 0.7 % (0.2-1.2); Eosinophils Absolute Auto 0.1 K/mm3 (0-0.3); Eosinophils Percent Auto 1.1 % (0-4.4); Hematocrit 41.1 % (42.0-52.0); Hemoglobin 13.1 g/dL (14.0-18.0); Immature Granulocyte Absolute 0.08 K/mm3 (0.00-0.031); Immature Granulocyte Percent A 0.9 % (0-0.5); Lymphocytes Absolute Auto 1.33 K/mm3 (0.9-3.2); Lymphocytes Percent Auto 15.5 % (18.3-44.2); Mean Corpuscular HGB Conc 31.9 g/dl (32-36); Mean Corpuscular Hemoglobin 30.8 pg (26-34); Mean Corpuscular Volume 96.5 fl (80-100); Mean Platelet Volume 10.6 fl (7.4-10.4); Monocytes Absolute Auto 1.1 K/mm3 (0.1-0.6); Monocytes Percent Auto 12.7 % (2.6-8.5); Neutrophils Absolute Auto 5.9 K/mm3 (1.3-6.7); Neutrophils Percent Auto 69.1 % (45.5-73.1); Platelet Count Result 276 k/mm3 (150-375); Red Blood Count 4.26 M/mm3 (4.6-6.20); Red Cell Distribution Width 13.4 % (11.5-14.5); White Blood Count 8.6 K/mm3 (4.5-10.0)
[2024-09-19] MEDS: SODIUM CHLORIDE 0.9% IV 1,000 ML 999 ML IV CONT (11:01)
[2024-09-19 11:07] LABS: Add Urine Microscopic? YES; Appearance Urine Clear (Clear); Bacteria Urine None Seen /hpf; Bilirubin Urine Negative (Negative); Blood Urine Negative (Negative); Color Urine Yellow (Yellow); Glucose Urine UA Negative (Negative); Ketones Urine Negative (Negative); Leukocyte Esterase Ur Trace LEU/UL (Negative); Nitrate Urine Negative (Negative); Non Pathogenic Casts 0-2; Protein Urine 1+ mg/dL (Negative); RBC Urine 0-2 /hpf (0-2); Specific Grav Ur 1.024 (1.001-1.035); Squamous Epithelial Cell Urine None Seen /hpf (Few); WBC Urine 0-5 /hpf (0-3)
--- OUTSIDE RECORDS SUMMARY | 2024-09-19 11:30 | XMS_ITS | Clinical Summary ---
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
--- OUTSIDE RECORDS SUMMARY | 2024-09-19 11:30 | XMS_ITS | Clinical Summary ---
Author Organization [facility] Address [facility] [place] [address] Care Team Providers Care Immigration Case Manager Name Role Phone Unavailable Primary Care Provider [...]
--- OUTSIDE RECORDS SUMMARY | 2024-09-19 11:30 | XMS_ITS | Clinical Summary ---
Author Organization [facility] Address [address] [facility] [place] [address] Care Team Providers Care Hat Body Sorter Name Role Phone Unavailable Primary Care Provider [...]
--- OUTSIDE RECORDS SUMMARY | 2024-09-19 11:30 | XMS_ITS | Referral Summary ---
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
--- OUTSIDE RECORDS SUMMARY | 2024-09-19 11:30 | XMS_ITS | Encounter Summary ---
Author Organization [facility] Address [address] [place] [address] Care Team Providers Care Shareholder Name Role Phone Unavailable Primary Care Provider Unavailabl e Prior Encounters Date Type Department Care Team Description 09/21/2021 1:15 PM CDT Office Visit [facility] [address] [place] [address] Sammi Foster DDS Left without seen 08/24/2021 3:00 PM CDT Office Visit [facility] [address] [place] [address] Danisha Dimas, ROLY Last Filed [...]
[2024-09-19 11:34] LABS: Alanine Aminotransferase 130 U/L (6-50); Albumin Level 3.6 g/dL (3.5-5.1); Alkaline Phosphatase 533 U/L (38-126); Anion Gap 7 mmol/L (4-12); Aspartate Amino Transferase 61 U/L (17-59); Bilirubin,Total 1.7 mg/dL (0.2-1.3); Blood Urea Nitrogen 22 mg/dL (9-20); Carbon Dioxide 29 mmol/L (22-30); Chloride 102 mmol/L (98-107); Estimated CRCL calculation 52 ml/min; Estimated Glomerular Filt Rate > 60; Glucose 136 mg/dL (65-110); Lipase 70 U/L (23-300); Potassium 4.5 mmol/L (3.4-5.0); Sodium 138 mmol/L (137-145)
[2024-09-19] MEDS: PROCHLORPERAZINE EDISYLATE 10 MG/2 ML VIAL IV PUSH (12:11)
[2024-09-19] MEDS: MORPHINE SULFATE (*CRX) 4 MG/ML INJ 2 MG IV PUSH (12:12)
[2024-09-19 12:41] VITALS: BP 126/79; PULSE 88; RESP 18; O2SAT 95
[2024-09-19 13:03] LABS: INR 1.2; Prothrombin Time 15.3 Seconds (11.1-14.7)
[2024-09-19 13:04] LABS: Partial Thromboplastin Time 28.9 Seconds (22.3-36.8)
[2024-09-19] MEDS: SODIUM CHLORIDE 0.9% IV 1,000 ML 125 ML IV CONT (13:10)
[2024-09-19 13:37] VITALS: BMI 20.8
--- NOTE | 2024-09-19 13:37 | ADMGEN ---
This patient, Thomas Santos, was admitted to Medical Room 261-01. Patient/family oriented to hospital policies and general routines including ID bracelet, bed and alarms, visiting hours, pain management, procedures, bathroom and other care routines, personal items, smoking policy, room service/diet, and visiting hours. Information on how to activate the Rapid Response Team has been discussed. Patient/Family are encouraged to report perceived risks to care and to ask questions if they do not understand what they are told or what they should do.
[2024-09-19 13:59] VITALS: BP 115/77; PULSE 82; RESP 20; TEMP 36.6; O2SAT 92
--- NOTE | 2024-09-19 15:10 | WPDGICN ---
Assessment and Plan Assessment and plan (1) Choledocholithiasis: Code(s): K80.50 - Calculus of bile duct without cholangitis or cholecystitis without obstruction Status: Acute Assessment and Plan: The patient's presentation is consistent with choledocholithiasis, supported by tomographic evidence. Although he underwent ERCP and stone extraction 10 years prior, the possibility of a retained stone secondary to scarring of the previous sphincterotomy, or the development of a de fiona stone, exists. To treat potential cholangitis, we will start antibiotic coverage with ceftriaxone 2 g IV daily. We plan to perform ERCP tomorrow with then goal of stone extraction. If t his is not technically infeasible, a plastic biliary stent will be placed for decompression, and the patient will be referred to [facility] for consideration of lithotripsy. GI Consult Note Consult date/time: 09/19/24 15:10 HPI: Thomas Santos is a 78-year-old male with a past medical history significant for laparoscopic cholecystectomy in 2014, performed concurrently with the removal of multiple common bile duct stones. Prior to the cholecystectomy, an attempted ERCP and stone extraction at our Hospital was unsuccessful, requiring transfer to [facility] for successful ERCP and stone extraction. He remained asymptomatic until approximately two months ago, when he began experiencing postprandial moderate to severe epigastric pain, often preceded by chills (no documented fever). Outpatient evaluation by our nurse practitioner yesterday included a CT scan revealing a 1.6 cm common bile duct stone with associated intra- and extrahepatic biliary dilatation. He is now hospitalized for further evaluation and treatment. Recent laboratory results include: WBC 8.6, Hgb 13.1, Plt 276, AST 61, ALT 130, Bilirubin 1.7, Alk Phos 533, INR 1.2. Review of Systems Review of Systems: All systems reviewed & are unremarkable except as noted in HPI and below PMFSH Past Medical History Medical History History of coronary artery disease Social History Social History Smoking status: Former smoker Tobacco type: cigarettes Alcohol intake: never Substance use: never Do You Feel Safe in your Home?: Yes Lack of Transportation: No Lack of Food: Never True Current Housing: I Have Housing Concerned About Future Housing: No Difficulty Paying Gas/Electric Bills: No Difficulty Paying for Meds: No Currently Unemployed: No Education: High School Diploma/GED Difficulty w/ Childcare or Family Care: No Gender identity (if verbalized by the patient): Male Spiritual care concerns: No Meds Home Medications and Allergies Home Medications ?Medication ?Instructions ?Recorded ?Confirmed ?Type No Home Medications 09/19/24 09/19/24 History Allergies Allergy/AdvReac Type Severity Reaction Status Date / Time ciprofloxacin Allergy Intermediate RASH Verified 09/19/24 10:15 Vital Signs Vital Signs - 24 hr 09/19/24 10:35 09/19/24 12:41 09/19/24 13:59 Temperature 97.9 F 97.8 F Pulse Rate 85 88 82 Respiratory Rate 16 18 20 Blood Pressure 152/89 H 126/79 115/77 Pulse Oximetry 96 95 92 Oxygen Delivery Room Air Exam Narrative: GENERAL: Well-appearing, well-nourished, and in no acute distress. anicteric HEAD: Normocephalic, atraumatic. EYES: PERRLA and EOMI. ENT: Nares clear, no rhinorrhea or epistaxis. Mucous membranes moist. NECK: Supple. CHEST: Clear to auscultation. No respiratory distress. HEART: Regular rate and rhythm. No murmur heard. Normal peripheral pulses. ABDOMEN: Soft, nontender, nondistended, normal active bowel sounds. EXTREMITIES: Normal range of motion. No edema. SKIN: Warm, dry, no rash. NEURO: No focal deficits. Alert and oriented x3. PSYCH: Normal mood and affect. Results Labs 09/19/24 10:55 09/19/24 11:07 Labs: Short CBC 09/19/24 Range/Units 10:55 WBC 8.6 (4.5-10.0) K/mm3 Hgb 13.1 L (14.0-18.0) g/dL Hct 41.1 L (42.0-52.0) % Plt Count 276 (150-375) k/mm3 BMP 09/19/24 11:07 Sodium 138 Potassium 4.5 Chloride 102 Carbon Dioxide 29 BUN 22 H Creatinine 1.01 Glucose 136 H Calcium 9.0 Liver Function 09/19/24 Range/Units 11:07 Total Bilirubin 1.7 H (0.2-1.3) mg/dL AST 61 H (17-59) U/L ALT 130 H (6-50) U/L Alkaline Phosphatase 533 H (38-126) U/L Albumin 3.6 (3.5-5.1) g/dL Urine 09/19/24 Range/Units 10:55 Urine Color Yellow (Yellow) Urine Appearance Clear (Clear) Urine pH 6.0 (5.0-9.0) Ur Specific [place] 1.024 (1.001-1.035) Urine Protein 1+ H (Negative) mg/dL Urine Glucose (UA) Negative (Negative) mg/dL
[2024-09-19 16:23] VITALS: O2SAT 91
[2024-09-19] MEDS: cefTRIAXone 2 GM/NS 100 ML 2 GM/100 ML BAG IVPB (16:43)
[2024-09-19 19:30] VITALS: BP 115/60; PULSE 112; RESP 16; TEMP 36.9; O2SAT 92
--- NOTE | 2024-09-19 19:35 | PM.IMHP ---
H&P: HPI History of Present Illness Date/Time: 09/19/24 19:35 Chief Complaint: Abdominal Pain Narrative: 78 y/o M with PMH of coronary artery disease, hypertension, [place], hypothyroidism, cholecystectomy presents here with abdominal pain and abnormal imaging. The patient presents here from home on 09/28 for further evaluation of abdominal pain and abnormal imaging. The patient was seen outpatient by his GI provider (through [facility]) for further evaluation of intermittent, severe, postprandial epigastric pain. Episodes would developed 1-2 hours after eating and would last for approximately 4 hours. Pain is accompanied by nausea, vomiting, inability to tolerate PO, and weight loss (5+ lbs). He reports some relief with emesis. Worsens with conception of meat. Most recent episode occurred over the past weekend. Patient had an outpatient CT of the abdomen/pelvis on 09/18. This showed an obstructing 1.6 cm likely gallstone of the distal common bile duct with moderate intra and extrahepatic biliary duct dilation. Patient was notified of results and presented here for further care. He is currently reporting no abdominal pain, nausea, or vomiting. Known abdominal aortic aneurysm? Initial VS at presentation: 97.9? F, HR 85, R 16, 152/89, and 96% on RA. ED workup showed: No leukocytosis, hemoglobin 13.1 (previously 13.5 on 09/18/2024), INR 1.2, creatinine 1.01 and GFR >60, total bilirubin 1.7, AST 61, ALT 130, alk-phos 533, lipase within normal limits. UA showed 1+ protein and trace leuks, otherwise unremarkable. CT of the abdomen/pelvis from 09/18 showed an obstructing 1.6 cm likely gallstone of the distal common bile duct with moderate intra and extrahepatic biliary duct dilation, 5.1 cm fusiform infrarenal abdominal aortic aneurysm, short segment of nonobstructing proximal sigmoid colon extents to moderate-sized left inguinal hernia, marked diverticulosis, multiple bilateral renal cysts. Review of Systems Review of Systems: All systems reviewed & are unremarkable except as noted in HPI and below PMFSH Past Medical History Medical History (Updated 09/19/24 @ 20:03 by Gema Chowdhury APRN) Hypothyroidism s/p tumor removal Myocardial infarction History of coronary artery disease Surgical History Surgical History History of cholecystectomy History of appendectomy History of coronary artery stent placement Social History Social History Smoking status: Former smoker Tobacco type: cigarettes Alcohol intake: never Substance use: never Do You Feel Safe in your Home?: Yes Lack of Transportation: No Lack of Food: Never True Current Housing: I Have Housing Concerned About Future Housing: No Difficulty Paying Gas/Electric Bills: No Difficulty Paying for Meds: No Currently Unemployed: No Education: High School Diploma/GED Difficulty w/ Childcare or Family Care: No Gender identity (if verbalized by the patient): Male Spiritual care concerns: No Meds Home Medications and Allergies Home Medications ?Medication ?Instructions ?Recorded ?Confirmed ?Type No Home Medications 09/19/24 09/19/24 History Allergies Allergy/AdvReac Type Severity Reaction Status Date / Time ciprofloxacin Allergy Intermediate RASH Verified 09/19/24 10:15 Vital Signs Vital Signs - 24 hr 09/19/24 10:35 09/19/24 12:41 09/19/24 13:37 Temperature 97.9 F Pulse Rate 85 88 Respiratory Rate 16 18 Blood Pressure 152/89 H 126/79 Pulse Oximetry 96 95 Oxygen Delivery Room Air Room Air 09/19/24 13:59 09/19/24 16:23 09/19/24 19:30 Temperature 97.8 F 98.4 F Pulse Rate 82 112 H Respiratory Rate 20 16 Blood Pressure 115/77 115/60 Pulse Oximetry 92 91 92 Oxygen Delivery Room Air Exam Const: General: comfortable and no acute distress Other: , male, nontoxic appearance HENMT: Face/Nose/Sinus: Normal nares present Mouth: Yes moist mucous membranes Eyes: General: appearance normal, both eyes and all related structures Sclera: sclerae normal Pupils: Equal, round and reactive pupils present EOM: EOMs intact bilaterally Resp: Effort & Inspection: normal respiratory effort Auscultation: clear to auscultation bilaterally Cardio: Rate: regular rate Rhythm: regular rhythm Other: S1-S2 present without murmur, rub, ectopy GI: Other: Abdomen soft, nondistended, nontender. Normoactive bowel sounds in all quadrants. Skin: General skin exam: normal color and no rashes or lesions noted Wounds: no wounds Neuro: Speech: normal speech Motor exam (neuro): 5/5 motor strength present throughout Sensory Exam: normal sensation Other: A&O x4 Extrem: General: normal to inspection Psych: Mental Status: mental status grossly normal Affect: normal affect Other: Good insight and judgment, pleasant H&P: Results Labs Labs: Short CBC 09/19/24 Range/Units 10:55 WBC 8.6 (4.5-10.0) K/mm3 Hgb 13.1 L (14.0-18.0) g/dL Hct 41.1 L (42.0-52.0) % Plt Count 276 (150-375) k/mm3 BMP 09/19/24 11:07 Sodium 138 Potassium 4.5 Chloride 102 Carbon Dioxide 29 BUN 22 H Creatinine 1.01 Glucose 136 H Calcium 9.0 Liver Function 09/19/24 Range/Units 11:07 Total Bilirubin 1.7 H (0.2-1.3) mg/dL AST 61 H (17-59) U/L ALT 130 H (6-50) U/L Alkaline Phosphatase 533 H (38-126) U/L Albumin 3.6 (3.5-5.1) g/dL Urine 09/19/24 Range/Units 10:55 Urine Color Yellow (Yellow) Urine Appearance Clear (Clear) Urine pH 6.0 (5.0-9.0) Ur Specific [place] 1.024 (1.001-1.035) Urine Protein 1+ H (Negative) mg/dL Urine Glucose (UA) Negative (Negative) mg/dL Assessment and Plan Assessment and plan (1) Choledocholithiasis: Code(s): K80.50 - Calculus of bile duct without cholangitis or cholecystitis without obstruction Status: Acute Assessment and Plan: CT abd/pelvis, 09/18: 1. Obstructing 1.6 cm likely gallstone at the distal common bile duct with moderate intra and extrahepatic biliary ductal dilation. 2. 5.1 cm fusiform infrarenal abdominal aortic aneurysm. 3. Short segment of nonobstructed proximal sigmoid colon extends into a moderate-sized left inguinal hernia. 4. Marked diverticulosis. 5. Multiple bilateral renal cysts with 2.8 cm exophytic lesion at the left kidney with slightly greater than simple fluid attenuation most likely proteinaceous/hemorrhagic cyst but would solid neoplasm could not be excluded. Could consider pre and postcontrast MRI or CT for further evaluation. GI consulted, Diana REYES. provided the following recs: To treat potential cholangitis -> start ceftriaxone 2 G daily Plan for ERCP tomorrow (09/20) with goal for stone extraction. If not feasible, plan for plastic biliary stent for decompression and will need referral to [facility] for stone extraction Analgesics p.r.n., antiemetic p.r.n. Clear liquid diet, NPO at midnight IV fluids: 125 mL/hr Trend labs (2) Elevated liver enzymes: Code(s): R74.8 - Abnormal levels of other serum enzymes Status: Acute Assessment and Plan: Total bilirubin 1.7, AST 61, ALT 130, alk-phos 533 Secondary to choledocholithiasis, plan for ERCP on 09/20 Trend Plan Diet: Clear liquid, NPO midnight GI Prophylaxis: Not currently indicated DVT Prophylaxis: SCDs IV fluids: 125 mL/hr Lines/Tubes: Peripheral IV Code Status: Full code Quality VTE Prophylaxis VTE prophylaxis: mechanical ordered Hospitalist MIPS Advance Care Plan I have confirmed that the patient's Advanced Care Plan is present, code status is documented, or surrogate decision maker is listed in patient medical record.: Yes Medication Reconciliation I have utilized all available resources to obtain, update and review the patients current medications (includes all prescriptions, OTC, herbals, cannabis, and nutritional supplements).: Yes
[2024-09-19 20:00] VITALS: PULSE 112; RESP 16; O2SAT 92
[2024-09-20] VITALS (11 sets, daily range): BP systolic 112–153; BP diastolic 70–96; PULSE 63–84; RESP 16–20; TEMP 36.1–36.9; O2SAT 95–100; BMI 20.8
[2024-09-20 05:23] LABS: Basophils Percent Auto 0.3 % (0.2-1.2); Eosinophils Absolute Auto 0.1 K/mm3 (0-0.3); Eosinophils Percent Auto 0.4 % (0-4.4); Hematocrit 35.5 % (42.0-52.0); Hemoglobin 11.3 g/dL (14.0-18.0); Immature Granulocyte Absolute 0.14 K/mm3 (0.00-0.031); Immature Granulocyte Percent A 0.9 % (0-0.5); Lymphocytes Absolute Auto 1.27 K/mm3 (0.9-3.2); Lymphocytes Percent Auto 8.1 % (18.3-44.2); Mean Corpuscular HGB Conc 31.8 g/dl (32-36); Mean Corpuscular Hemoglobin 30.6 pg (26-34); Mean Corpuscular Volume 96.2 fl (80-100); Mean Platelet Volume 10.7 fl (7.4-10.4); Monocytes Absolute Auto 1.5 K/mm3 (0.1-0.6); Monocytes Percent Auto 9.6 % (2.6-8.5); Neutrophils Absolute Auto 12.6 K/mm3 (1.3-6.7); Neutrophils Percent Auto 80.7 % (45.5-73.1); Platelet Count Result 225 k/mm3 (150-375); Red Blood Count 3.69 M/mm3 (4.6-6.20); Red Cell Distribution Width 13.3 % (11.5-14.5); White Blood Count 15.6 K/mm3 (4.5-10.0)
[2024-09-20] MEDS: SODIUM CHLORIDE 0.9% IV 1,000 ML 125 ML IV CONT ×2 (05:30→16:58)
[2024-09-20 05:42] LABS: Alanine Aminotransferase 253 U/L (6-50); Albumin Level 3.1 g/dL (3.5-5.1); Alkaline Phosphatase 614 U/L (38-126); Anion Gap 7 mmol/L (4-12); Aspartate Amino Transferase 237 U/L (17-59); Bilirubin,Total 3.2 mg/dL (0.2-1.3); Blood Urea Nitrogen 17 mg/dL (9-20); Carbon Dioxide 26 mmol/L (22-30); Chloride 105 mmol/L (98-107); Estimated CRCL calculation 46 ml/min; Estimated Glomerular Filt Rate > 60; Glucose 101 mg/dL (65-110); Potassium 4.3 mmol/L (3.4-5.0); Sodium 138 mmol/L (137-145)
--- NOTE | 2024-09-20 07:08 | WPDGIPROGNO ---
Progress Note: A&P Assessment and Plan (1) Gallstone of bile duct with obstruction: Code(s): K80.51 - Calculus of bile duct without cholangitis or cholecystitis with obstruction Status: Acute Assessment and Plan: Despite clinically stable, the patient's laboratory values demonstrate upward trend from yesterday to today: AST increased significantly from 61 to 237, ALT from 130 to 253, total bilirubin from 1.7 to 3.2, alkaline phosphatase from 533 to 614, and the white blood cell count from 8.6 to 15.6. The patient is currently receiving ceftriaxone for antibiotic coverage. An ERCP is planned for stone removal, as identified on CT imaging. If stone removal is not technically feasible during ERCP, a stent will be placed, and the patient will be observed with a referral to a tertiary care center for potential lithotripsy. Subjective Date/time seen: 09/20/24 07:08 Interval history: The patient did not have abdominal pain during the night, no fever. He has been on clear liquids and he states that he has pain attacks occur only with solid food. Objective Data Vital Signs Vital Signs: Vital Signs - 24 hr 09/19/24 10:35 09/19/24 12:41 09/19/24 13:37 Temperature 97.9 F Pulse Rate 85 88 Respiratory Rate 16 18 Blood Pressure 152/89 H 126/79 Pulse Oximetry 96 95 Oxygen Delivery Room Air Room Air 09/19/24 13:59 09/19/24 16:23 09/19/24 19:30 Temperature 97.8 F 98.4 F Pulse Rate 82 112 H Respiratory Rate 20 16 Blood Pressure 115/77 115/60 Pulse Oximetry 92 91 92 Oxygen Delivery Room Air 09/19/24 20:00 09/20/24 04:32 Temperature 97.8 F Pulse Rate 112 H 84 Respiratory Rate 16 17 Blood Pressure 112/70 Pulse Oximetry 92 95 Oxygen Delivery Room Air Intake/Output Intake/Output: Intake & Output 09/17/24 09/18/24 09/19/24 09/20/24 23:59 23:59 23:59 23:59 Intake Total 2580 Balance 2580 Meds/Results Medications: Active Medications Generic Name Dose Route Start Last Admin Trade Name Freq PRN Reason Stop Dose Admin Acetaminophen 500 mg 09/19/24 20:03 Acetaminophen 500 Mg Tablet PO Q4H PRN Mild Pain (1-3) or Fever Hydrocodone Bitart/Acetaminophen 1 tab 09/19/24 20:03 Hydrocodone/Acetaminophen (*Crx) 5-325 Mg Tablet PO Q6H PRN Pain Rated 4-6 Sodium Chloride 1,000 mls @ 125 mls/hr 09/19/24 12:30 09/20/24 05:30 Normal Saline Iv IV CONT 125 mls/hr .Q8H RYAN Administration Ceftriaxone Sodium 2 gm in 100 mls @ 200 mls/hr 09/19/24 15:00 09/19/24 17:13 Rocephin 2 Gm/Ns 100 Ml IVPB Infused Q24H RYAN Infusion Morphine Sulfate 2 mg 09/19/24 12:32 Morphine Sulfate (*Crx) 4 Mg/Ml Inj IV PUSH Q2H PRN Pain Rated 7-10 Ondansetron HCl 4 mg 09/19/24 12:27 Ondansetron Inj 4 Mg/2 Ml Vial IV PUSH Q4H PRN Nausea Labs Labs: Laboratory Results - last 24 hr 09/19/24 09/19/24 09/19/24 10:55 11:07 12:38 WBC 8.6 RBC 4.26 L Hgb 13.1 L Hct 41.1 L MCV 96.5 MCH 30.8 MCHC 31.9 L RDW 13.4 Plt Count 276 MPV 10.6 H Immature Gran % (Auto) 0.9 H Neut % (Auto) 69.1 Lymph % (Auto) 15.5 L [place] % (Auto) 12.7 H Eos % (Auto) 1.1 Baso % (Auto) 0.7 Lymph # (Auto) 1.33 [place] # (Auto) 1.1 H Eos # (Auto) 0.1 Baso # (Auto) 0.1 Abs Immat Gran (auto) 0.08 H Absolute Neuts (auto) 5.9 Absolute Nucleated RBC 0.000 Nucleated RBC % 0.0 PT 15.3 H INR 1.2 APTT 28.9 Sodium 138 Potassium 4.5 Chloride 102 Carbon Dioxide 29 Anion Gap 7 BUN 22 H Creatinine 1.01 Estim Creat Clear Calc 52 Estimated GFR > 60 Glucose 136 H Calcium 9.0 Total Bilirubin 1.7 H AST 61 H ALT 130 H Alkaline Phosphatase 533 H Total Protein 7.0 Albumin 3.6 Lipase 70 Urine Color Yellow Urine Appearance Clear Urine pH 6.0 Ur Specific [place] 1.024 Urine Protein 1+ H Urine Glucose (UA) Negative Urine Ketones Negative Ur Blood (Man) Negative Urine Nitrate Negative Urine Bilirubin Negative Urine Urobilinogen 1.0 Leukocyte Esterase Rfl Trace H Urine RBC 0-2 Urine WBC 0-5 Ur Squamous Epith Cells None seen Urine Bacteria None seen Urine Casts 0-2 09/20/24 04:41 WBC 15.6 H RBC 3.69 L Hgb 11.3 L Hct 35.5 L MCV 96.2 MCH 30.6 MCHC 31.8 L RDW 13.3 Plt Count 225 MPV 10.7 H Immature Gran % (Auto) 0.9 H Neut % (Auto) 80.7 H Lymph % (Auto) 8.1 L [place] % (Auto) 9.6 H Eos % (Auto) 0.4 Baso % (Auto) 0.3 Lymph # (Auto) 1.27 [place] # (Auto) 1.5 H Eos # (Auto) 0.1 Baso # (Auto) 0.0 Abs Immat Gran (auto) 0.14 H Absolute Neuts (auto) 12.6 H Absolute Nucleated RBC 0.000 Nucleated RBC % 0.0 PT INR APTT Sodium 138 Potassium 4.3 Chloride 105 Carbon Dioxide 26 Anion Gap 7 BUN 17 Creatinine 1.14 Estim Creat Clear Calc 46 Estimated GFR > 60 Glucose 101 Calcium 8.0 L Total Bilirubin 3.2 H AST 237 H ALT 253 H Alkaline Phosphatase 614 H Total Protein 6.0 L Albumin 3.1 L Lipase Urine Color Urine Appearance Urine pH Ur Specific [place] Urine Protein Urine Glucose (UA) Urine Ketones Ur Blood (Man) Urine Nitrate Urine Bilirubin Urine Urobilinogen Leukocyte Esterase Rfl Urine RBC Urine WBC Ur Squamous Epith Cells Urine Bacteria Urine Casts
[2024-09-20] MEDS: LACTATED RINGERS 1,000 ML 150 ML IV CONT ×2 (12:35→13:33)
[2024-09-20] MEDS: INDOMETHACIN 50 MG SUPP.RECT 100 MG RECTAL (12:35)
--- NOTE | 2024-09-20 13:01 | P.PNIM_ITS ---
Progress Note: A&P Assessment and Plan (1) Choledocholithiasis: Code(s): K80.50 - Calculus of bile duct without cholangitis or cholecystitis without obstruction Status: Acute Assessment and Plan: CT abd/pelvis, 09/18: 1. Obstructing 1.6 cm likely gallstone at the distal common bile duct with moderate intra and extrahepatic biliary ductal dilation. 2. 5.1 cm fusiform infrarenal abdominal aortic aneurysm. 3. Short segment of nonobstructed proximal sigmoid colon extends into a moderate-sized left inguinal hernia. 4. Marked diverticulosis. 5. Multiple bilateral renal cysts with 2.8 cm exophytic lesion at the left kidney with slightly greater than simple fluid attenuation most likely proteinaceous/hemorrhagic cyst but would solid neoplasm could not be excluded. Could consider pre and postcontrast MRI or CT for further evaluation. GI consulted, Diana REYES. provided the following recs: To treat potential cholangitis -> start ceftriaxone 2 G daily Plan for ERCP (09/20) with goal for stone extraction. If not feasible, plan for plastic biliary stent for decompression and will need referral to [facility] for stone extraction Analgesics p.r.n., antiemetic p.r.n. -->ERCP performed, pending results -GI to increase diet as tolerated (2) Elevated liver enzymes: Code(s): R74.8 - Abnormal levels of other serum enzymes Status: Acute Assessment and Plan: Labs: 09/19: Total bilirubin 1.7, AST 61, ALT 130, alk-phos 533 09/20: Total bilirubin 3.2, AST 237, ALT 253, alk-phos 614 - prior to ERCP -->GI aware of updated levels, continue to trend in the AM of 09/21 Secondary to choledocholithiasis, plan for ERCP on 09/20 (3) Bacteremia: Code(s): R78.81 - Bacteremia Status: Acute Assessment and Plan: R AC blood culture yielding gram negative bacilli isolated -Awaiting second culture -Pt hemodynamically stable -->Pt on abx coverage of ceftriaxone 2g daily, will continue Plan Diet: Full liquid diet GI Prophylaxis: Not currently indicated DVT Prophylaxis: SCDs IV fluids: 125 mL/hr LR Lines/Tubes: Peripheral IV Code Status: Full code -->Awaiting ERCP and second blood culture result Subjective Date/time seen: 09/20/24 1025 Interval history: Pt resting comfortably in bed. Pleasant gentlemen who is declining abd pain or N/V/D. Pt reports that he experiences pain when he eats. Pt confirms his previous dx of cholelithiasis in 2014 where they tried to obtain the stone here at [facility] but it was unsuccessful and he had to transfer to [facility] for the procedure. Pt was at an outside GI provider office yesterday (via [facility]) for further investigation of postprandial epigastric pain, last occurring this past weekend. Outpt CT on 09/18 showing a 1.6cm likely gallstone of the distal common bile duct with moderate intra and extrahepatic biliary duct dilation. Pt reported to the ED after these results were shared with him. Pt also with hx of AAA. Denies CP, SOB, or any other sx at this time. 1645: Pt then visited in the PACU after ERCP, pt awake and resting comfortably on stretcher. Still awaiting ERCP results although per pt, stone retrieval unsuccessful. Pt denies pain. Updated him on the plan of awaiting ERCP results with GI rounding tomorrow as well for the potential plan to transfer to [facility] for lithotripsy. Pt made aware of full liquid diet until further diet tolerated, pt agreeable to plan. Review of Systems Review of Systems: All systems reviewed & are unremarkable except as noted in HPI and below Exam Const: General: comfortable and no acute distress HENMT: Face/Nose/Sinus: Normal nares present Mouth: Yes moist mucous membranes Eyes: General: appearance normal, both eyes and all related structures Sclera: sclerae normal Neck: Neck: supple and no JVD Carotids: no bruits Resp: Effort & Inspection: normal respiratory effort Auscultation: clear to auscultation bilaterally Cardio: Rate: regular rate Rhythm: regular rhythm GI: Auscultation: abnormal bowel sounds (hypo active) Skin: General skin exam: normal color and no rashes or lesions noted L esions: no lesions noted Rashes: no rashes noted Wounds: no wounds Neuro: Speech: normal speech Motor exam (neuro): 5/5 motor strength present throughout Sensory Exam: normal sensation Extrem: General: normal to inspection Psych: Mental Status: mental status grossly normal Affect: normal affect Objective Data Vital Signs Vital Signs: Vital Signs - 24 hr 09/19/24 13:37 09/19/24 13:59 09/19/24 16:23 Temperature 97.8 F Pulse Rate 82 Respiratory Rate 20 Blood Pressure 115/77 Pulse Oximetry 92 91 Oxygen Delivery Room Air Room Air 09/19/24 19:30 09/19/24 20:00 09/20/24 04:32 Temperature 98.4 F 97.8 F Pulse Rate 112 H 112 H 84 Respiratory Rate 16 16 17 Blood Pressure 115/60 112/70 Pulse Oximetry 92 92 95 Oxygen Delivery Room Air 09/20/24 08:00 09/20/24 12:41 Temperature 98.4 F Pulse Rate 77 Respiratory Rate 18 Blood Pressure 128/79 Pulse Oximetry 98 Oxygen Delivery Room Air Room Air Intake/Output Intake/Output: Intake & Output 09/17/24 09/18/24 09/19/24 09/20/24 23:59 23:59 23:59 23:59 Intake Total 2580 Balance 2580 Meds/Results Medications: Active Medications Generic Name Dose Route Start Last Admin Trade Name Freq PRN Reason Stop Dose Admin Acetaminophen 500 mg 09/19/24 20:03 Acetaminophen 500 Mg Tablet PO Q4H PRN Mild Pain (1-3) or Fever Hydrocodone Bitart/Acetaminophen 1 tab 09/19/24 20:03 Hydrocodone/Acetaminophen (*Crx) 5-325 Mg Tablet PO Q6H PRN Pain Rated 4-6 Sodium Chloride 1,000 mls @ 125 mls/hr 09/19/24 12:30 09/20/24 05:30 Normal Saline Iv IV CONT 125 mls/hr .Q8H RYAN Administration Ceftriaxone Sodium 2 gm in 100 mls @ 200 mls/hr 09/19/24 15:00 09/19/24 17:13 Rocephin 2 Gm/Ns 100 Ml IVPB Infused Q24H RYAN Infusion Lactated Ringer's 1,000 mls @ 150 mls/hr 09/20/24 12:35 09/20/24 12:35 Lr - Lactated Ringers Iv IV CONT 150 mls/hr .Q6H40M RYAN Administration Morphine Sulfate 2 mg 09/19/24 12:32 Morphine Sulfate (*Crx) 4 Mg/Ml Inj IV PUSH Q2H PRN Pain Rated 7-10 Ondansetron HCl 4 mg 09/19/24 12:27 Ondansetron Inj 4 Mg/2 Ml Vial IV PUSH Q4H PRN Nausea Labs Labs: Laboratory Results - last 24 hr 09/19/24 09/20/24 12:38 04:41 WBC 15.6 H RBC 3.69 L Hgb 11.3 L Hct 35.5 L MCV 96.2 MCH 30.6 MCHC 31.8 L RDW 13.3 Plt Count 225 MPV 10.7 H Immature Gran % (Auto) 0.9 H Neut % (Auto) 80.7 H Lymph % (Auto) 8.1 L [place] % (Auto) 9.6 H Eos % (Auto) 0.4 Baso % (Auto) 0.3 Lymph # (Auto) 1.27 [place] # (Auto) 1.5 H Eos # (Auto) 0.1 Baso # (Auto) 0.0 Abs Immat Gran (auto) 0.14 H Absolute Neuts (auto) 12.6 H Absolute Nucleated RBC 0.000 Nucleated RBC % 0.0 PT 15.3 H INR 1.2 APTT 28.9 Sodium 138 Potassium 4.3 Chloride 105 Carbon Dioxide 26 Anion Gap 7 BUN 17 Creatinine 1.14 Estim Creat Clear Calc 46 Estimated GFR > 60 Glucose 101 Calcium 8.0 L Total Bilirubin 3.2 H AST 237 H ALT 253 H Alkaline Phosphatase 614 H Total Protein 6.0 L Albumin 3.1 L Quality VTE Prophylaxis VTE prophylaxis: mechanical ordered
--- NOTE | 2024-09-20 13:41 | P.PNAN_ITS ---
Anes - Initial Pre Proc Eval Procedure: Operation Date: 09/20/24 13:00 Proposed Procedures p Endoscopic Retro Cholangiopancreatogram - Jaime Ortiz MD Date/Time: 09/20/24 13:41 Surgeon: Renita Taveras MD Pre Op Diagnosis: Abdominal Pain/Common Bile Duct Stone Patient Data Age: 78 Gender: M Height: 1.8 m Weight: 67.8 kg Last Vital Signs Temp 98.4 F 09/20/24 12:41 Pulse 77 09/20/24 12:41 Resp 18 09/20/24 12:41 BP 128/79 09/20/24 12:41 Pulse Ox 98 09/20/24 12:41 O2 Del Method Room Air 09/20/24 12:41 Allergies Allergy/AdvReac Type Severity Reaction Status Date / Time ciprofloxacin Allergy Intermediate RASH Verified 09/19/24 10:15 Home Medications ?Medication ?Instructions ?Recorded ?Confirmed ?Type No Home Medications 09/19/24 09/19/24 History Laboratory Tests 09/20/24 04:41 WBC 15.6 H K/mm3 (4.5-10.0) RBC 3.69 L M/mm3 (4.6-6.20) Hgb 11.3 L g/dL (14.0-18.0) Hct 35.5 L % (42.0-52.0) MCV 96.2 fl (80-100) MCH 30.6 pg (26-34) MCHC 31.8 L g/dl (32-36) RDW 13.3 % (11.5-14.5) Plt Count 225 k/mm3 (150-375) MPV 10.7 H fl (7.4-10.4) Immature Gran % (Auto) 0.9 H % (0-0.5) Neut % (Auto) 80.7 H % (45.5-73.1) Lymph % (Auto) 8.1 L % (18.3-44.2) [place] % (Auto) 9.6 H % (2.6-8.5) Eos % (Auto) 0.4 % (0-4.4) Baso % (Auto) 0.3 % (0.2-1.2) Lymph # (Auto) 1.27 K/mm3 (0.9-3.2) [place] # (Auto) 1.5 H K/mm3 (0.1-0.6) Eos # (Auto) 0.1 K/mm3 (0-0.3) Baso # (Auto) 0.0 K/mm3 (0.0-0.1) Abs Immat Gran (auto) 0.14 H K/mm3 (0.00-0.031) Absolute Neuts (auto) 12.6 H K/mm3 (1.3-6.7) Absolute Nucleated RBC 0.000 K/mm3 (0.0-0.012) Nucleated RBC % 0.0 % (0.0-0.2) Sodium 138 mmol/L (137-145) Potassium 4.3 mmol/L (3.4-5.0) Chloride 105 mmol/L (98-107) Carbon Dioxide 26 mmol/L (22-30) Anion Gap 7 mmol/L (4-12) BUN 17 mg/dL (9-20) Creatinine 1.14 mg/dL (0.7-1.3) Estim Creat Clear Calc 46 ml/min Estimated GFR > 60 (59 - ) Glucose 101 mg/dL (65-110) Calcium 8.0 L mg/dL (8.4-10.2) Total Bilirubin 3.2 H mg/dL (0.2-1.3) AST 237 H U/L (17-59) ALT 253 H U/L (6-50) Alkaline Phosphatase 614 H U/L (38-126) Total Protein 6.0 L g/dL (6.3-8.2) Albumin 3.1 L g/dL (3.5-5.1) Patient hx anesthesia problems: none Family hx anesthesia problems: none Results Review: All pre-operative results and documents have been reviewed as part of the pre- operative evaluation. [facility] Past Medical History Medical History Hypothyroidism s/p tumor removal Myocardial infarction History of coronary artery disease Surgical History Surgical History History of cholecystectomy History of appendectomy History of coronary artery stent placement Social History Social History Smoking status: Former smoker Tobacco type: cigarettes Alcohol intake: never Substance use: never Do You Feel Safe in your Home?: Yes Lack of Transportation: No Lack of Food: Never True Current Housing: I Have Housing Concerned About Future Housing: No Difficulty Paying Gas/Electric Bills: No Difficulty Paying for Meds: No Currently Unemployed: No Education: High School Diploma/GED Difficulty w/ Childcare or Family Care: No Gender identity (if verbalized by the patient): Male Spiritual care concerns: No Anes - Eval Final PreProcedure Day of Procedure 09/20/24 13:41 Patient weight: normal and thin Lungs: normal air movement Airway: Mallampati scale and special considerations (Edentulous. ) Neurological: alert and oriented Last oral intake: >/= 8 hours ASA classification: III Emergent: no Anesthetic plan: proceed Anesthesia type and monitoring: general ETT and standard monitoring Results Review: All pre-operative results and documents have been reviewed as part of the pre- operative evaluation. S/p PTCA approx 2009 x 1 or 2, pt sees IM dr every 6 months, no cp or sob. He a ctively walks, cuts grass, no cp or sob. Long time ex smoker. Pt now for ERCP Informed Consent: The patient's anesthetic plan and its attendant risks and benefits were discussed with the patient/family/POA. Questions were solicited and answers provided to the satisfaction of the patient/family/POA.
[2024-09-20] MEDS: cefTRIAXone 2 GM/NS 100 ML 2 GM/100 ML BAG IVPB (16:58)
[2024-09-21 02:53] VITALS: BP 124/71; PULSE 110; RESP 18; TEMP 36.5; O2SAT 94
[2024-09-21 05:04] LABS: Basophils Percent Auto 0.3 % (0.2-1.2); Eosinophils Absolute Auto 0.1 K/mm3 (0-0.3); Eosinophils Percent Auto 0.9 % (0-4.4); Hemoglobin 12.2 g/dL (14.0-18.0); Immature Granulocyte Absolute 0.13 K/mm3 (0.00-0.031); Lymphocytes Absolute Auto 0.95 K/mm3 (0.9-3.2); Lymphocytes Percent Auto 7.1 % (18.3-44.2); Mean Corpuscular Hemoglobin 30.8 pg (26-34); Mean Corpuscular Volume 93.4 fl (80-100); Mean Platelet Volume 10.4 fl (7.4-10.4); Monocytes Absolute Auto 1.2 K/mm3 (0.1-0.6); Neutrophils Percent Auto 81.7 % (45.5-73.1); Platelet Count Result 241 k/mm3 (150-375); Red Blood Count 3.96 M/mm3 (4.6-6.20); Red Cell Distribution Width 13.1 % (11.5-14.5); White Blood Count 13.4 K/mm3 (4.5-10.0)
[2024-09-21 05:15] LABS: Alanine Aminotransferase 191 U/L (6-50); Albumin Level 3.3 g/dL (3.5-5.1); Alkaline Phosphatase 549 U/L (38-126); Anion Gap 10 mmol/L (4-12); Aspartate Amino Transferase 105 U/L (17-59); Bilirubin,Total 1.3 mg/dL (0.2-1.3); Blood Urea Nitrogen 18 mg/dL (9-20); Calcium 8.3 mg/dL (8.4-10.2); Carbon Dioxide 23 mmol/L (22-30); Chloride 106 mmol/L (98-107); Estimated CRCL calculation 57 ml/min; Estimated Glomerular Filt Rate > 60; Glucose 92 mg/dL (65-110); Potassium 3.8 mmol/L (3.4-5.0); Sodium 139 mmol/L (137-145)
[2024-09-21] MEDS: SODIUM CHLORIDE 0.9% IV 1,000 ML 125 ML IV CONT ×2 (05:42→13:23)
--- NOTE | 2024-09-21 08:11 | P.PNIM_ITS ---
Progress Note: A&P Assessment and Plan (1) Choledocholithiasis: Code(s): K80.50 - Calculus of bile duct without cholangitis or cholecystitis without obstruction Status: Acute Assessment and Plan: CT abd/pelvis, 09/18: 1. Obstructing 1.6 cm likely gallstone at the distal common bile duct with moderate intra and extrahepatic biliary ductal dilation. 2. 5.1 cm fusiform infrarenal abdominal aortic aneurysm. 3. Short segment of nonobstructed proximal sigmoid colon extends into a moderate-sized left inguinal hernia. 4. Marked diverticulosis. 5. Multiple bilateral renal cysts with 2.8 cm exophytic lesion at the left kidney with slightly greater than simple fluid attenuation most likely proteinaceous/hemorrhagic cyst but would solid neoplasm could not be excluded. Could consider pre and postcontrast MRI or CT for further evaluation. GI consulted, Diana REYES. provided the following recs: To treat potential cholangitis -> start ceftriaxone 2 G daily Plan for ERCP (09/20) with goal for stone extraction. If not feasible, plan for plastic biliary stent for decompression and will need referral to [facility] for stone extraction Analgesics p.r.n., antiemetic p.r.n. -->ERCP performed on 09/20 with sphincterotomy and biliary drainage after biliary stent placement Per GI note today, plan for Monday (09/23) will proceed with another ercp but this time using cholangioscopy to assess if retained stones that may need EHL -Low fat diet now, pt tolerating (2) Elevated liver enzymes: Code(s): R74.8 - Abnormal levels of other serum enzymes Status: Acute Assessment and Plan: Secondary to choledocholithiasis, ERCP performed on 09/20 with stent placement Labs: 09/19: Total bilirubin 1.7, AST 61, ALT 130, alk-phos 533 09/20: Total bilirubin 3.2, AST 237, ALT 253, alk-phos 614 - prior to ERCP 09/21: Total bilirubin 1.3, AST 105, ALT 191, alk-phos 549 - post ERCP -->Continue to trend in the AM (3) Bacteremia: Code(s): R78.81 - Bacteremia Status: Acute Assessment and Plan: Blood cultures yielding gram negative bacilli isolated -->Pt on abx coverage of ceftriaxone 2g daily, will continue -Pt hemodynamically stable, WBC downtrending Plan Diet: Low fat diet GI Prophylaxis: Not currently indicated DVT Prophylaxis: SCDs IV fluids: D/C, start again once pt NPO for next ERCP Lines/Tubes: Peripheral IV Code Status: Full code Plan for repeat ERCP 09/23 Subjective Date/time seen: 09/21/24 1125 Interval history: Pt sitting on side of bed, denies pain, about to get up to use the restroom. Pt reports feeling better after his ERCP yesterday. Reports that the GI provider recently came around and updated him on the plan for an additional ERCP on Saturday 09/23. Denies N/V/D. Pt tolerating full liquids, GI has since increased diet to low fat. Review of Systems Review of Systems: All systems reviewed & are unremarkable except as noted in HPI and below Exam Const: General: comfortable and no acute distress HENMT: Face/Nose/Sinus: Normal nares present Mouth: Yes moist mucous membranes Eyes: General: appearance normal, both eyes and all related structures Sclera: sclerae normal Neck: Neck: supple and no JVD Carotids: no bruits Resp: Effort & Inspection: normal respiratory effort Auscultation: clear to auscultation bilaterally Cardio: Rate: regular rate Rhythm: regular rhythm GI: Auscultation: normal bowel sounds Skin: General skin exam: normal color and no rashes or lesions noted Wounds: no wounds Neuro: General: gait normal Motor exam (neuro): Normal motor muscle tone present throughout Sensory Exam: normal sensation Extrem: General: normal to inspection Psych: Mental Status: mental status grossly normal Affect: normal affect Objective Data Vital Signs Vital Signs: Vital Signs - 24 hr 09/20/24 12:41 09/20/24 14:00 09/20/24 15:27 Temperature 98.4 F 96.9 F L 97.4 F L Pulse Rate 77 65 82 Respiratory Rate 18 18 20 Blood Pressure 128/79 151/90 H 147/90 H Pulse Oximetry 98 100 100 Oxygen Delivery Room Air Simple Face Mask Oxygen Flow Rate 8 09/20/24 15:37 09/20/24 15:47 09/20/24 15:57 Temperature Pulse Rate 80 65 65 Respiratory Rate 16 18 20 Blood Pressure 151/93 H 143/94 H 138/83 Pulse Oximetry 100 98 98 Oxygen Delivery Simple Face Mask Room Air Room Air Oxygen Flow Rate 6 09/20/24 16:07 09/20/24 16:17 09/20/24 20:00 Temperature Pulse Rate 66 63 70 Respiratory Rate 20 20 18 Blood Pressure 149/96 H 143/79 H Pulse Oximetry 98 98 100 Oxygen Delivery Room Air Room Air Room Air Oxygen Flow Rate 09/20/24 20:26 09/21/24 02:53 Temperature 97.8 F 97.7 F Pulse Rate 70 110 H Respiratory Rate 18 18 Blood Pressure 153/89 H 124/71 Pulse Oximetry 100 94 Oxygen Delivery Oxygen Flow Rate Intake/Output Intake/Output: Intake & Output 09/18/24 09/19/24 09/20/24 09/21/24 23:59 23:59 23:59 23:59 Intake Total 2580 2480 1290 Balance 2580 2480 1290 Meds/Results Medications: Active Medications Generic Name Dose Route Start Last Admin Trade Name Freq PRN Reason Stop Dose Admin Acetaminophen 500 mg 09/19/24 20:03 Acetaminophen 500 Mg Tablet PO Q4H PRN Mild Pain (1-3) or Fever Hydrocodone Bitart/Acetaminophen 1 tab 09/19/24 20:03 Hydrocodone/Acetaminophen (*Crx) 5-325 Mg Tablet PO Q6H PRN Pain Rated 4-6 Sodium Chloride 1,000 mls @ 125 mls/hr 09/19/24 12:30 09/21/24 05:42 Normal Saline Iv IV CONT 125 mls/hr .Q8H RYAN Administration Ceftriaxone Sodium 2 gm in 100 mls @ 200 mls/hr 09/19/24 15:00 09/20/24 16:58 Rocephin 2 Gm/Ns 100 Ml IVPB 200 mls/hr Q24H RYAN Administration Morphine Sulfate 2 mg 09/19/24 12:32 Morphine Sulfate (*Crx) 4 Mg/Ml Inj IV PUSH Q2H PRN Pain Rated 7-10 Ondansetron HCl 4 mg 09/19/24 12:27 Ondansetron Inj 4 Mg/2 Ml Vial IV PUSH Q4H PRN Nausea Labs Labs: Laboratory Results - last 24 hr 09/21/24 04:36 WBC 13.4 H RBC 3.96 L Hgb 12.2 L Hct 37.0 L MCV 93.4 MCH 30.8 MCHC 33.0 RDW 13.1 Plt Count 241 MPV 10.4 Immature Gran % (Auto) 1.0 H Neut % (Auto) 81.7 H Lymph % (Auto) 7.1 L [place] % (Auto) 9.0 H Eos % (Auto) 0.9 Baso % (Auto) 0.3 Lymph # (Auto) 0.95 [place] # (Auto) 1.2 H Eos # (Auto) 0.1 Baso # (Auto) 0.0 Abs Immat Gran (auto) 0.13 H Absolute Neuts (auto) 11.0 H Absolute Nucleated RBC 0.000 Nucleated RBC % 0.0 Sodium 139 Potassium 3.8 Chloride 106 Carbon Dioxide 23 Anion Gap 10 BUN 18 Creatinine 0.91 Estim Creat Clear Calc 57 Estimated GFR > 60 Glucose 92 Calcium 8.3 L Total Bilirubin 1.3 AST 105 H ALT 191 H Alkaline Phosphatase 549 H Total Protein 6.0 L Albumin 3.3 L Quality VTE Prophylaxis VTE prophylaxis: mechanical ordered
--- NOTE | 2024-09-21 11:38 | WPDGIPROGNO ---
Progress Note: A&P Assessment and Plan (1) Choledocholithiasis: Code(s): K80.50 - Calculus of bile duct without cholangitis or cholecystitis without obstruction Status: Acute Assessment and Plan: bacteremia + klebsiella with elevated liver enzymes c/w cholangitis ercp yesteday with good biliary drainage after biliary stent probably Monday will proceed with another ercp but this time using cholangioscopy to assess if retained stones that may need EHL (2) Klebsiella sepsis: Code(s): A41.59 - Other Gram-negative sepsis Status: Acute Assessment and Plan: on abx (3) Cholangitis: Code(s): K83.09 - Other cholangitis Status: Acute Assessment and Plan: on treatment s/p ercp on iv abx (4) Elevated liver enzymes: Code(s): R74.8 - Abnormal levels of other serum enzymes Status: Acute Assessment and Plan: trending down (5) Epigastric pain: Code(s): R10.13 - Epigastric pain Status: Acute (6) Bacteremia: Code(s): R78.81 - Bacteremia Status: Acute Subjective Date/time seen: 09/21/24 11:38 Interval history: patient with GN bacteremia, biliary source ercp yesterday with sphincterotomy and biliary drainage after biliary stent placement he is feeling much better, no pain Review of Systems Review of Systems: All systems reviewed & are unremarkable except as noted in HPI and below Exam Const: General: comfortable and no acute distress HENMT: Face/Nose/Sinus: Normal nares present Eyes: General: appearance normal, both eyes and all related structures Neck: Neck: supple Resp: Auscultation: clear to auscultation bilaterally Cardio: Rate: regular rate Rhythm: regular rhythm GI: Inspection: non-distended GI Palp: Yes Soft to palpation and No Tenderness to palpation present (GI) Auscultation: normal bowel sounds Skin: General skin exam: normal color Neuro: General: gait normal Speech: normal speech Extrem: General: normal to inspection Psych: Mental Status: mental status grossly normal Objective Data Vital Signs Vital Signs: Vital Signs - 24 hr 09/20/24 12:41 09/20/24 14:00 09/20/24 15:27 Temperature 98.4 F 96.9 F L 97.4 F L Pulse Rate 77 65 82 Respiratory Rate 18 18 20 Blood Pressure 128/79 151/90 H 147/90 H Pulse Oximetry 98 100 100 Oxygen Delivery Room Air Simple Face Mask Oxygen Flow Rate 8 09/20/24 15:37 09/20/24 15:47 09/20/24 15:57 Temperature Pulse Rate 80 65 65 Respiratory Rate 16 18 20 Blood Pressure 151/93 H 143/94 H 138/83 Pulse Oximetry 100 98 98 Oxygen Delivery Simple Face Mask Room Air Room Air Oxygen Flow Rate 6 09/20/24 16:07 09/20/24 16:17 09/20/24 20:00 Temperature Pulse Rate 66 63 70 Respiratory Rate 20 20 18 Blood Pressure 149/96 H 143/79 H Pulse Oximetry 98 98 100 Oxygen Delivery Room Air Room Air Room Air Oxygen Flow Rate 09/20/24 20:26 09/21/24 02:53 09/21/24 08:00 Temperature 97.8 F 97.7 F Pulse Rate 70 110 H Respiratory Rate 18 18 Blood Pressure 153/89 H 124/71 Pulse Oximetry 100 94 Oxygen Delivery Room Air Oxygen Flow Rate Intake/Output Intake/Output: Intake & Output 09/18/24 09/19/24 09/20/24 09/21/24 23:59 23:59 23:59 23:59 Intake Total 2580 2580 1770 Balance 2580 2580 1770 Meds/Results Medications: Active Medications Generic Name Dose Route Start Last Admin Trade Name Freq PRN Reason Stop Dose Admin Acetaminophen 500 mg 09/19/24 20:03 Acetaminophen 500 Mg Tablet PO Q4H PRN Mild Pain (1-3) or Fever Hydrocodone Bitart/Acetaminophen 1 tab 09/19/24 20:03 Hydrocodone/Acetaminophen (*Crx) 5-325 Mg Tablet PO Q6H PRN Pain Rated 4-6 Sodium Chloride 1,000 mls @ 125 mls/hr 09/19/24 12:30 09/21/24 10:47 Normal Saline Iv IV CONT Not Given .Q8H RYAN Ceftriaxone Sodium 2 gm in 100 mls @ 200 mls/hr 09/19/24 15:00 09/20/24 17:28 Rocephin 2 Gm/Ns 100 Ml IVPB Infused Q24H RYAN Infusion Morphine Sulfate 2 mg 09/19/24 12:32 Morphine Sulfate (*Crx) 4 Mg/Ml Inj IV PUSH Q2H PRN Pain Rated 7-10 Ondansetron HCl 4 mg 09/19/24 12:27 Ondansetron Inj 4 Mg/2 Ml Vial IV PUSH Q4H PRN Nausea Labs Labs: Laboratory Results - last 24 hr 09/21/24 04:36 WBC 13.4 H RBC 3.96 L Hgb 12.2 L Hct 37.0 L MCV 93.4 MCH 30.8 MCHC 33.0 RDW 13.1 Plt Count 241 MPV 10.4 Immature Gran % (Auto) 1.0 H Neut % (Auto) 81.7 H Lymph % (Auto) 7.1 L [place] % (Auto) 9.0 H Eos % (Auto) 0.9 Baso % (Auto) 0.3 Lymph # (Auto) 0.95 [place] # (Auto) 1.2 H Eos # (Auto) 0.1 Baso # (Auto) 0.0 Abs Immat Gran (auto) 0.13 H Absolute Neuts (auto) 11.0 H Absolute Nucleated RBC 0.000 Nucleated RBC % 0.0 Sodium 139 Potassium 3.8 Chloride 106 Carbon Dioxide 23 Anion Gap 10 BUN 18 Creatinine 0.91 Estim Creat Clear Calc 57 Estimated GFR > 60 Glucose 92 Calcium 8.3 L Total Bilirubin 1.3 AST 105 H ALT 191 H Alkaline Phosphatase 549 H Total Protein 6.0 L Albumin 3.3 L
[2024-09-21 13:32] VITALS: BP 144/85; PULSE 80; RESP 18; TEMP 36.4; O2SAT 98
[2024-09-21] MEDS: cefTRIAXone 2 GM/NS 100 ML 2 GM/100 ML BAG IVPB (14:18)
[2024-09-21 20:00] VITALS: O2SAT 97
[2024-09-21 22:00] VITALS: BP 137/85; PULSE 78; RESP 18; TEMP 36.8; O2SAT 97
[2024-09-22 05:03] LABS: Basophils Absolute Auto 0.1 K/mm3 (0.0-0.1); Basophils Percent Auto 0.4 % (0.2-1.2); Eosinophils Absolute Auto 0.2 K/mm3 (0-0.3); Eosinophils Percent Auto 1.7 % (0-4.4); Hematocrit 35.1 % (42.0-52.0); Hemoglobin 11.8 g/dL (14.0-18.0); Immature Granulocyte Percent A 0.9 % (0-0.5); Lymphocytes Absolute Auto 1.07 K/mm3 (0.9-3.2); Lymphocytes Percent Auto 9.4 % (18.3-44.2); Mean Corpuscular HGB Conc 33.6 g/dl (32-36); Mean Corpuscular Hemoglobin 31.1 pg (26-34); Mean Corpuscular Volume 92.4 fl (80-100); Mean Platelet Volume 10.7 fl (7.4-10.4); Monocytes Absolute Auto 1.4 K/mm3 (0.1-0.6); Monocytes Percent Auto 12.1 % (2.6-8.5); Neutrophils Absolute Auto 8.7 K/mm3 (1.3-6.7); Neutrophils Percent Auto 75.5 % (45.5-73.1); Platelet Count Result 227 k/mm3 (150-375); Red Cell Distribution Width 13.2 % (11.5-14.5); White Blood Count 11.4 K/mm3 (4.5-10.0)
[2024-09-22 05:15] LABS: Alanine Aminotransferase 127 U/L (6-50); Albumin Level 3.1 g/dL (3.5-5.1); Alkaline Phosphatase 402 U/L (38-126); Anion Gap 6 mmol/L (4-12); Aspartate Amino Transferase 39 U/L (17-59); Bilirubin,Total 0.8 mg/dL (0.2-1.3); Blood Urea Nitrogen 15 mg/dL (9-20); Calcium 7.9 mg/dL (8.4-10.2); Carbon Dioxide 24 mmol/L (22-30); Chloride 106 mmol/L (98-107); Estimated CRCL calculation 58 ml/min; Estimated Glomerular Filt Rate > 60; Glucose 103 mg/dL (65-110); Potassium 3.8 mmol/L (3.4-5.0); Sodium 136 mmol/L (137-145)
[2024-09-22 06:00] VITALS: BP 129/80; PULSE 84; RESP 18; TEMP 36.7; O2SAT 96
--- NOTE | 2024-09-22 08:33 | P.PNIM_ITS ---
Progress Note: A&P Assessment and Plan (1) Choledocholithiasis: Code(s): K80.50 - Calculus of bile duct without cholangitis or cholecystitis without obstruction Status: Acute Assessment and Plan: CT abd/pelvis, 09/18: 1. Obstructing 1.6 cm likely gallstone at the distal common bile duct with moderate intra and extrahepatic biliary ductal dilation. 2. 5.1 cm fusiform infrarenal abdominal aortic aneurysm. 3. Short segment of nonobstructed proximal sigmoid colon extends into a moderate-sized left inguinal hernia. 4. Marked diverticulosis. 5. Multiple bilateral renal cysts with 2.8 cm exophytic lesion at the left kidney with slightly greater than simple fluid attenuation most likely proteinaceous/hemorrhagic cyst but would solid neoplasm could not be excluded. Could consider pre and postcontrast MRI or CT for further evaluation. GI consulted, Diana REYES. provided the following recs: To treat potential cholangitis -> start ceftriaxone 2 G daily Plan for ERCP (09/20) with goal for stone extraction. If not feasible, plan for plastic biliary stent for decompression and will need referral to [facility] for stone extraction Analgesics p.r.n., antiemetic p.r.n. -->ERCP performed on 09/20 with sphincterotomy and biliary drainage after biliary stent placement Per GI note 09/21, plan for Monday (09/23) will proceed with another ercp but this time using cholangioscopy to assess if retained stones that may need EHL -Low fat diet now, pt tolerating (2) Elevated liver enzymes: Code(s): R74.8 - Abnormal levels of other serum enzymes Status: Acute Assessment and Plan: Secondary to choledocholithiasis, ERCP performed on 09/20 with stent placement Labs: 09/19: Total bilirubin 1.7, AST 61, ALT 130, alk-phos 533 09/20: Total bilirubin 3.2, AST 237, ALT 253, alk-phos 614 - prior to ERCP 09/21: Total bilirubin 1.3, AST 105, ALT 191, alk-phos 549 - post ERCP 09/22: Total bilirubin 0.8 AST 39, ALT 127, alk-phos 402 - post ERCP day x1 -->Continue to trend in the AM (3) Bacteremia: Code(s): R78.81 - Bacteremia Status: Acute Assessment and Plan: Blood cultures yielding gram negative bacilli isolated -->Pt on abx coverage of ceftriaxone 2g daily, will continue -Pt hemodynamically stable, WBC downtrending Plan Diet: Low fat diet GI Prophylaxis: Not currently indicated DVT Prophylaxis: SCDs IV fluids: D/C, start again once pt NPO for next ERCP Lines/Tubes: Peripheral IV Code Status: Full code Plan for repeat ERCP 09/23 Subjective Date/time seen: 09/22/24 0930 Interval history: Pt lying comfortably in bed. Pt denies pain and any sx including abd pain, N/V/D. Tolerating food well. Updated on the plan for repeat ERCP tomorrow. VSS. Review of Systems Review of Systems: All systems reviewed & are unremarkable except as noted in HPI and below Exam Const: General: comfortable and no acute distress HENMT: Face/Nose/Sinus: Normal nares present Mouth: Yes moist mucous membranes Eyes: General: appearance normal, both eyes and all related structures S clera: sclerae normal Neck: Neck: supple and no JVD Resp: Effort & Inspection: normal respiratory effort Auscultation: clear to auscultation bilaterally Cardio: Rate: regular rate Rhythm: regular rhythm Skin: General skin exam: normal color and no rashes or lesions noted Wounds: no wounds Neuro: Speech: normal speech Motor exam (neuro): Normal motor muscle tone present throughout Sensory Exam: normal sensation Extrem: General: normal to inspection Psych: Mental Status: mental status grossly normal Affect: normal affect Objective Data Vital Signs Vital Signs: Vital Signs - 24 hr 09/21/24 13:32 09/21/24 20:00 09/21/24 22:00 Temperature 97.5 F L 98.2 F Pulse Rate 80 78 Respiratory Rate 18 18 Blood Pressure 144/85 H 137/85 Pulse Oximetry 98 97 97 Oxygen Delivery Room Air 09/22/24 06:00 Temperature 98.1 F Pulse Rate 84 Respiratory Rate 18 Blood Pressure 129/80 Pulse Oximetry 96 Oxygen Delivery Intake/Output Intake/Output: Intake & Output 09/19/24 09/20/24 09/21/24 09/22/24 23:59 23:59 23:59 23:59 Intake Total 2580 2580 3334.2 Balance 2580 2580 3334.2 Meds/Results Medications: Active Medications Generic Name Dose Route Start Last Admin Trade Name Freq PRN Reason Stop Dose Admin Acetaminophen 500 mg 05/01/25 20:03 Acetaminophen 500 Mg Tablet PO Q4H PRN Mild Pain (1-3) or Fever Hydrocodone Bitart/Acetaminophen 1 tab 09/19/24 20:03 Hydrocodone/Acetaminophen (*Crx) 5-325 Mg Tablet PO Q6H PRN Pain Rated 4-6 Ceftriaxone Sodium 2 gm in 100 mls @ 200 mls/hr 09/19/24 15:00 09/21/24 14:48 Rocephin 2 Gm/Ns 100 Ml IVPB Infused Q24H RYAN Infusion Morphine Sulfate 2 mg 09/19/24 12:32 Morphine Sulfate (*Crx) 4 Mg/Ml Inj IV PUSH Q2H PRN Pain Rated 7-10 Ondansetron HCl 4 mg 09/19/24 12:27 Ondansetron Inj 4 Mg/2 Ml Vial IV PUSH Q4H PRN Nausea Labs Labs: Laboratory Results - last 24 hr 09/22/24 04:33 WBC 11.4 H RBC 3.80 L Hgb 11.8 L Hct 35.1 L MCV 92.4 MCH 31.1 MCHC 33.6 RDW 13.2 Plt Count 227 MPV 10.7 H Immature Gran % (Auto) 0.9 H Neut % (Auto) 75.5 H Lymph % (Auto) 9.4 L [place] % (Auto) 12.1 H Eos % (Auto) 1.7 Baso % (Auto) 0.4 Lymph # (Auto) 1.07 [place] # (Auto) 1.4 H Eos # (Auto) 0.2 Baso # (Auto) 0.1 Abs Immat Gran (auto) 0.10 H Absolute Neuts (auto) 8.7 H Absolute Nucleated RBC 0.000 Nucleated RBC % 0.0 Sodium 136 L Potassium 3.8 Chloride 106 Carbon Dioxide 24 Anion Gap 6 BUN 15 Creatinine 0.89 Estim Creat Clear Calc 58 Estimated GFR > 60 Glucose 103 Calcium 7.9 L Total Bilirubin 0.8 AST 39 ALT 127 H Alkaline Phosphatase 402 H Total Protein 6.0 L Albumin 3.1 L Quality VTE Prophylaxis VTE prophylaxis: mechanical ordered
[2024-09-22 14:25] VITALS: BP 125/81; PULSE 74; RESP 16; TEMP 36.5; O2SAT 96
[2024-09-22] MEDS: cefTRIAXone 2 GM/NS 100 ML 2 GM/100 ML BAG IVPB (15:03)
[2024-09-22 22:00] VITALS: BP 132/75; PULSE 81; RESP 18; TEMP 36.6; O2SAT 96
[2024-09-23] VITALS (14 sets, daily range): BP systolic 114–148; BP diastolic 74–91; PULSE 62–88; RESP 16–23; TEMP 35.8–37.4; O2SAT 96–98
[2024-09-23 05:04] LABS: Basophils Absolute Auto 0.1 K/mm3 (0.0-0.1); Basophils Percent Auto 0.6 % (0.2-1.2); Eosinophils Absolute Auto 0.2 K/mm3 (0-0.3); Eosinophils Percent Auto 2.4 % (0-4.4); Hematocrit 36.1 % (42.0-52.0); Hemoglobin 12.2 g/dL (14.0-18.0); Immature Granulocyte Absolute 0.15 K/mm3 (0.00-0.031); Immature Granulocyte Percent A 1.5 % (0-0.5); Lymphocytes Absolute Auto 1.47 K/mm3 (0.9-3.2); Lymphocytes Percent Auto 14.4 % (18.3-44.2); Mean Corpuscular HGB Conc 33.8 g/dl (32-36); Mean Corpuscular Hemoglobin 31.2 pg (26-34); Mean Corpuscular Volume 92.3 fl (80-100); Mean Platelet Volume 10.4 fl (7.4-10.4); Monocytes Absolute Auto 1.3 K/mm3 (0.1-0.6); Monocytes Percent Auto 12.7 % (2.6-8.5); Neutrophils Percent Auto 68.4 % (45.5-73.1); Platelet Count Result 259 k/mm3 (150-375); Red Blood Count 3.91 M/mm3 (4.6-6.20); Red Cell Distribution Width 13.2 % (11.5-14.5); White Blood Count 10.2 K/mm3 (4.5-10.0)
[2024-09-23 05:20] LABS: Alanine Aminotransferase 107 U/L (6-50); Albumin Level 3.4 g/dL (3.5-5.1); Alkaline Phosphatase 377 U/L (38-126); Anion Gap 8 mmol/L (4-12); Aspartate Amino Transferase 35 U/L (17-59); Bilirubin,Total 0.7 mg/dL (0.2-1.3); Blood Urea Nitrogen 17 mg/dL (9-20); Calcium 8.3 mg/dL (8.4-10.2); Carbon Dioxide 27 mmol/L (22-30); Chloride 105 mmol/L (98-107); Estimated CRCL calculation 49 ml/min; Estimated Glomerular Filt Rate > 60; Glucose 107 mg/dL (65-110); Potassium 3.9 mmol/L (3.4-5.0); Sodium 140 mmol/L (137-145)
--- NOTE | 2024-09-23 08:00 | WPDGIPROGNO ---
Progress Note: A&P Assessment and Plan (1) Choledocholithiasis: Code(s): K80.50 - Calculus of bile duct without cholangitis or cholecystitis without obstruction Status: Acute Assessment and Plan: bacteremia + klebsiella with elevated liver enzymes c/w cholangitis ercp good biliary drainage after biliary stent but will assess again using cholangioscopy to assess if retained stones that may need EHL liver enzymes coming down (2) Klebsiella sepsis: Code(s): A41.59 - Other Gram-negative sepsis Status: Acute Assessment and Plan: on abx (3) Cholangitis: Code(s): K83.09 - Other cholangitis Status: Acute Assessment and Plan: on treatment s/p ercp on iv abx (4) Elevated liver enzymes: Code(s): R74.8 - Abnormal levels of other serum enzymes Status: Acute Assessment and Plan: trending down (5) Epigastric pain: Code(s): R10.13 - Epigastric pain Status: Acute (6) Bacteremia: Code(s): R78.81 - Bacteremia Status: Acute Subjective Date/time seen: this should have been for 09/22/24 1255 Interval history: doing better, no pain and tolerating diet Review of Systems Review of Systems: All systems reviewed & are unremarkable except as noted in HPI and below Exam Const: General: comfortable and no acute distress HENMT: Face/Nose/Sinus: Normal nares present Eyes: General: appearance normal, both eyes and all related structures Neck: Neck: no JVD Resp: Auscultation: clear to auscultation bilaterally Cardio: Rate: regular rate Rhythm: regular rhythm GI: Inspection: non-distended GI Palp: Yes Soft to palpation Skin: General skin exam: normal color Neuro: Speech: normal speech Extrem: General: normal to inspection Psych: Mental Status: mental status grossly normal Objective Data Vital Signs Vital Signs: Vital Signs - 24 hr 09/22/24 14:25 09/22/24 20:00 09/22/24 22:00 Temperature 97.7 F 97.8 F Pulse Rate 74 81 Respiratory Rate 16 18 Blood Pressure 125/81 132/75 Pulse Oximetry 96 96 Oxygen Delivery Room Air 09/23/24 06:00 Temperature 98.1 F Pulse Rate 81 Respiratory Rate 18 Blood Pressure 114/82 Pulse Oximetry 97 Oxygen Delivery Intake/Output Intake/Output: Intake & Output 09/20/24 09/21/24 09/22/24 09/23/24 23:59 23:59 23:59 23:59 Intake Total 2580 3334.2 1510 Balance 2580 3334.2 1510 Meds/Results Medications: Active Medications Generic Name Dose Route Start Last Admin Trade Name Freq PRN Reason Stop Dose Admin Acetaminophen 500 mg 09/19/24 20:03 Acetaminophen 500 Mg Tablet PO Q4H PRN Mild Pain (1-3) or Fever Hydrocodone Bitart/Acetaminophen 1 tab 09/19/24 20:03 Hydrocodone/Acetaminophen (*Crx) 5-325 Mg Tablet PO Q6H PRN Pain Rated 4-6 Ceftriaxone Sodium 2 gm in 100 mls @ 200 mls/hr 09/19/24 15:00 09/22/24 15:33 Rocephin 2 Gm/Ns 100 Ml IVPB Infused Q24H RYAN Infusion Lactated Ringer's 1,000 mls @ 100 mls/hr 09/23/24 07:20 Lr - Lactated Ringers Iv IV CONT .Q10H RYAN Morphine Sulfate 2 mg 09/19/24 12:32 Morphine Sulfate (*Crx) 4 Mg/Ml Inj IV PUSH Q2H PRN Pain Rated 7-10 Ondansetron HCl 4 mg 09/19/24 12:27 Ondansetron Inj 4 Mg/2 Ml Vial IV PUSH Q4H PRN Nausea Labs Labs: Laboratory Results - last 24 hr 09/23/24 04:23 WBC 10.2 H RBC 3.91 L Hgb 12.2 L Hct 36.1 L MCV 92.3 MCH 31.2 MCHC 33.8 RDW 13.2 Plt Count 259 MPV 10.4 Immature Gran % (Auto) 1.5 H Neut % (Auto) 68.4 Lymph % (Auto) 14.4 L [place] % (Auto) 12.7 H Eos % (Auto) 2.4 Baso % (Auto) 0.6 Lymph # (Auto) 1.47 [place] # (Auto) 1.3 H Eos # (Auto) 0.2 Baso # (Auto) 0.1 Abs Immat Gran (auto) 0.15 H Absolute Neuts (auto) 7.0 H Absolute Nucleated RBC 0.000 Nucleated RBC % 0.0 Sodium 140 Potassium 3.9 Chloride 105 Carbon Dioxide 27 Anion Gap 8 BUN 17 Creatinine 1.07 Estim Creat Clear Calc 49 Estimated GFR > 60 Glucose 107 Calcium 8.3 L Total Bilirubin 0.7 AST 35 ALT 107 H Alkaline Phosphatase 377 H Total Protein 7.0 Albumin 3.4 L
--- NOTE | 2024-09-23 08:38 | PM.IMPN ---
Progress Note: A&P Assessment and Plan (1) Choledocholithiasis: Code(s): K80.50 - Calculus of bile duct without cholangitis or cholecystitis without obstruction Status: Acute Assessment and Plan: CT abd/pelvis, 09/18: 1. Obstructing 1.6 cm likely gallstone at the distal common bile duct with moderate intra and extrahepatic biliary ductal dilation. 2. 5.1 cm fusiform infrarenal abdominal aortic aneurysm. 3. Short segment of nonobstructed proximal sigmoid colon extends into a moderate-sized left inguinal hernia. 4. Marked diverticulosis. 5. Multiple bilateral renal cysts with 2.8 cm exophytic lesion at the left kidney with slightly greater than simple fluid attenuation most likely proteinaceous/hemorrhagic cyst but would solid neoplasm could not be excluded. Could consider pre and postcontrast MRI or CT for further evaluation. GI consulted, Diana REYES. provided the following recs: To treat potential cholangitis -> start ceftriaxone 2 G daily Plan for ERCP (09/20) with goal for stone extraction. If not feasible, plan for plastic biliary stent for decompression and will need referral to [facility] for stone extraction Analgesics p.r.n., antiemetic p.r.n. -->ERCP performed on 09/20 with sphincterotomy and biliary drainage after biliary stent placement Per GI note 09/21 & 09/23, plan for Monday (09/23) will proceed with another ercp but this time using cholangioscopy to assess if retained stones that may need EHL -NPO today with IVF for repeat ERCP today -Continues to deny all sx today (2) Elevated liver enzymes: Code(s): R74.8 - Abnormal levels of other serum enzymes Status: Acute Assessment and Plan: Secondary to choledocholithiasis, ERCP performed on 09/20 with stent placement Labs: 09/19: Total bilirubin 1.7, AST 61, ALT 130, alk-phos 533 09/20: Total bilirubin 3.2, AST 237, ALT 253, alk-phos 614 - prior to ERCP 09/21: Total bilirubin 1.3, AST 105, ALT 191, alk-phos 549 - post ERCP 09/22: Total bilirubin 0.8, AST 39, ALT 127, alk-phos 402 - post ERCP day x1 09/23: Total bilirubin 0.7, AST 35, ALT 107, alk-phos 377 - post ERCP day x2 -->Continue to trend in the AM (3) Bacteremia: Code(s): R78.81 - Bacteremia Status: Acute Assessment and Plan: Blood cultures yielding gram negative bacilli isolated -->Pt on abx coverage of ceftriaxone 2g daily, will continue until able to take PO again then switch to PO abx -Pt hemodynamically stable, WBC downtrending Plan Diet: NPO for ERCP GI Prophylaxis: Not currently indicated DVT Prophylaxis: SCDs IV fluids: LR 100ml/hr Lines/Tubes: Peripheral IV Code Status: Full code Plan for repeat ERCP 09/23 Subjective Date/time seen: 09/23/24 0955 Interval history: Pt resting comfortably lying in bed awaiting repeat ERCP procedure today. Pt denies any sx, including abd pain an N/V/D. VSS. Review of Systems Review of Systems: All systems reviewed & are unremarkable except as noted in HPI and below Exam Const: General: comfortable and no acute distress HENMT: Face/Nose/Sinus: Normal nares present Mouth: Yes moist mucous membranes Eyes: General: appearance normal, both eyes and all related structures Sclera: sclerae normal Neck: Neck: supple and no JVD Carotids: no bruits Resp: Effort & Inspection: normal respiratory effort Auscultation: clear to auscultation bilaterally Cardio: Rate: regular rate Rhythm: regular rhythm GI: Inspection: non-distended Auscultation: normal bowel sounds Other: No TTP Skin: General skin exam: normal color and no rashes or lesions noted Wounds: no wounds Neuro: Speech: normal speech Motor exam (neuro): Normal motor muscle tone present throughout Sensory Exam: normal sensation Extrem: General: normal to inspection Psych: Mental Status: mental status grossly normal Affect: normal affect Objective Data Vital Signs Vital Signs: Vital Signs - 24 hr 09/22/24 14:25 09/22/24 20:00 09/22/24 22:00 Temperature 97.7 F 97.8 F Pulse Rate 74 81 Respiratory Rate 16 18 Blood Pressure 125/81 132/75 Pulse Oximetry 96 96 Oxygen Delivery Room Air 09/23/24 06:00 Temperature 98.1 F Pulse Rate 81 Respiratory Rate 18 Blood Pressure 114/82 Pulse Oximetry 97 Oxygen Delivery Intake/Output Intake/Output: Intake & Output 09/20/24 09/21/24 09/22/24 09/23/24 23:59 23:59 23:59 23:59 Intake Total 2580 3334.2 1510 Balance 2580 3334.2 1510 Meds/Results Medications: Active Medications Generic Name Dose Route Start Last Admin Trade Name Freq PRN Reason Stop Dose Admin Acetaminophen 500 mg 09/19/24 20:03 Acetaminophen 500 Mg Tablet PO Q4H PRN Mild Pain (1-3) or Fever Hydrocodone Bitart/Acetaminophen 1 tab 09/19/24 20:03 Hydrocodone/Acetaminophen (*Crx) 5-325 Mg Tablet PO Q6H PRN Pain Rated 4-6 Ceftriaxone Sodium 2 gm in 100 mls @ 200 mls/hr 09/19/24 15:00 09/22/24 15:33 Rocephin 2 Gm/Ns 100 Ml IVPB Infused Q24H RYAN Infusion Lactated Ringer's 1,000 mls @ 100 mls/hr 09/23/24 07:20 Lr - Lactated Ringers Iv IV CONT .Q10H RYAN Morphine Sulfate 2 mg 09/19/24 12:32 Morphine Sulfate (*Crx) 4 Mg/Ml Inj IV PUSH Q2H PRN Pain Rated 7-10 Ondansetron HCl 4 mg 09/19/24 12:27 Ondansetron Inj 4 Mg/2 Ml Vial IV PUSH Q4H PRN Nausea Labs Labs: Laboratory Results - last 24 hr 09/23/24 04:23 WBC 10.2 H RBC 3.91 L Hgb 12.2 L Hct 36.1 L MCV 92.3 MCH 31.2 MCHC 33.8 RDW 13.2 Plt Count 259 MPV 10.4 Immature Gran % (Auto) 1.5 H Neut % (Auto) 68.4 Lymph % (Auto) 14.4 L [place] % (Auto) 12.7 H Eos % (Auto) 2.4 Baso % (Auto) 0.6 Lymph # (Auto) 1.47 [place] # (Auto) 1.3 H Eos # (Auto) 0.2 Baso # (Auto) 0.1 Abs Immat Gran (auto) 0.15 H Absolute Neuts (auto) 7.0 H Absolute Nucleated RBC 0.000 Nucleated RBC % 0.0 Sodium 140 Potassium 3.9 Chloride 105 Carbon Dioxide 27 Anion Gap 8 BUN 17 Creatinine 1.07 Estim Creat Clear Calc 49 Estimated GFR > 60 Glucose 107 Calcium 8.3 L Total Bilirubin 0.7 AST 35 ALT 107 H Alkaline Phosphatase 377 H Total Protein 7.0 Albumin 3.4 L Quality VTE Prophylaxis VTE prophylaxis: mechanical ordered
--- NOTE | 2024-09-23 10:20 | WPDCDIQUERY2 ---
CDI Query Clarification Request 1) Please clarify dx of bacteremia vs sepsis 2) If sepsis please clarify if present on admission The medical chart reflects the following: Documented 5/2 by hospitalist: (3) Bacteremia: Code(s): R78.81 - Bacteremia Status: Acute Assessment and Plan: Blood cultures yielding gram negative bacilli isolated -->Pt on abx coverage of ceftriaxone 2g daily, will continue until able to take PO again then switch to PO abx -Pt hemodynamically stable, WBC downtrending Documented 5/3 by GI: 2) Klebsiella sepsis: Code(s): A41.59 - Other Gram-negative sepsis Status: Acute Assessment and Plan: on abx <Marivel Krishnan RN - Last Filed: 09/23/24 10:24> 1) Please clarify dx of bacteremia vs sepsis -->Bacteremia 2) If sepsis please clarify if present on admission N/A The medical chart reflects the following: Documented 5/2 by hospitalist: (3) Bacteremia: Code(s): R78.81 - Bacteremia Status: Acute Assessment and Plan: Blood cultures yielding gram negative bacilli isolated -->Pt on abx coverage of ceftriaxone 2g daily, will continue until able to take PO again then switch to PO abx -Pt hemodynamically stable, WBC downtrending <Yessica Alcantara APRN - Last Filed: 09/23/24 15:33>
--- NOTE | 2024-09-23 10:59 | P.PNAN_ITS ---
Anes - Initial Pre Proc Eval Procedure: Operation Date: 09/20/24 13:00 Proposed Procedures p Endoscopic Retro Cholangiopancreatogram - Jaime Ortiz MD Operation Date: 09/23/24 15:00 Proposed Procedures p Endoscopic Retro Cholangiopancreatogram - Chaitanya Lu MD Date/Time: 09/23/24 10:59 Surgeon: Renita Taveras MD Pre Op Diagnosis: Abdominal Pain/Common Bile Duct Stone Patient Data Age: 78 Gender: M Height: 1.8 m Weight: 67.8 kg Last Vital Signs Temp 98.1 F 09/23/24 06:00 Pulse 81 09/23/24 06:00 Resp 18 09/23/24 06:00 BP 114/82 09/23/24 06:00 Pulse Ox 97 09/23/24 06:00 O2 Del Method Room Air 09/22/24 20:00 O2 Flow Rate 6 09/20/24 15:37 Allergies Allergy/AdvReac Type Severity Reaction Status Date / Time ciprofloxacin Allergy Intermediate RASH Verified 09/19/24 10:15 Home Medications ?Medication ?Instructions ?Recorded ?Confirmed ?Type No Home Medications 09/19/24 09/19/24 History Laboratory Tests 09/23/24 04:23 WBC 10.2 H K/mm3 (4.5-10.0) RBC 3.91 L M/mm3 (4.6-6.20) Hgb 12.2 L g/dL (14.0-18.0) Hct 36.1 L % (42.0-52.0) MCV 92.3 fl (80-100) MCH 31.2 pg (26-34) MCHC 33.8 g/dl (32-36) RDW 13.2 % (11.5-14.5) Plt Count 259 k/mm3 (150-375) MPV 10.4 fl (7.4-10.4) Immature Gran % (Auto) 1.5 H % (0-0.5) Neut % (Auto) 68.4 % (45.5-73.1) Lymph % (Auto) 14.4 L % (18.3-44.2) [place] % (Auto) 12.7 H % (2.6-8.5) Eos % (Auto) 2.4 % (0-4.4) Baso % (Auto) 0.6 % (0.2-1.2) Lymph # (Auto) 1.47 K/mm3 (0.9-3.2) [place] # (Auto) 1.3 H K/mm3 (0.1-0.6) Eos # (Auto) 0.2 K/mm3 (0-0.3) Baso # (Auto) 0.1 K/mm3 (0.0-0.1) Abs Immat Gran (auto) 0.15 H K/mm3 (0.00-0.031) Absolute Neuts (auto) 7.0 H K/mm3 (1.3-6.7) Absolute Nucleated RBC 0.000 K/mm3 (0.0-0.012) Nucleated RBC % 0.0 % (0.0-0.2) Sodium 140 mmol/L (137-145) Potassium 3.9 mmol/L (3.4-5.0) Chloride 105 mmol/L (98-107) Carbon Dioxide 27 mmol/L (22-30) Anion Gap 8 mmol/L (4-12) BUN 17 mg/dL (9-20) Creatinine 1.07 mg/dL (0.7-1.3) Estim Creat Clear Calc 49 ml/min Estimated GFR > 60 (59 - ) Glucose 107 mg/dL (65-110) Calcium 8.3 L mg/dL (8.4-10.2) Total Bilirubin 0.7 mg/dL (0.2-1.3) AST 35 U/L (17-59) ALT 107 H U/L (6-50) Alkaline Phosphatase 377 H U/L (38-126) Total Protein 7.0 g/dL (6.3-8.2) Albumin 3.4 L g/dL (3.5-5.1) Patient hx anesthesia problems: none Family hx anesthesia problems: none Results Review: All pre-operative results and documents have been reviewed as part of the pre- operative evaluation. [facility] Past Medical History Medical History Cholangitis Klebsiella sepsis Hypothyroidism s/p tumor removal Myocardial infarction History of coronary artery disease Surgical History Surgical History History of cholecystectomy History of appendectomy History of coronary artery stent placement Social History Social History Smoking status: Former smoker Tobacco type: cigarettes Alcohol intake: never Substance use: never Do You Feel Safe in your Home?: Yes Lack of Transportation: No Lack of Food: Never True Current Housing: I Have Housing Concerned About Future Housing: No Difficulty Paying Gas/Electric Bills: No Difficulty Paying for Meds: No Currently Unemployed: No Education: High School Diploma/GED Difficulty w/ Childcare or Family Care: No Gender identity (if verbalized by the patient): Male Spiritual care concerns: No Anes - Eval Final PreProcedure Day of Procedure 09/23/24 10:59 Patient weight: normal Lungs: normal air movement Airway: Mallampati scale and special considerations (Edentulous. ) Neurological: alert and oriented Last oral intake: >/= 8 hours ASA classification: III Emergent: no Anesthetic plan: proceed Anesthesia type and monitoring: general ETT and standard monitoring Results Review: All pre-operative results and documents have been reviewed as part of the pre- operative evaluation. My note from 09/20/24 reviewed and full discussion w pt again today in preop area. No interval change in pt history and pt feels well this morning. Informed Consent: The patient's anesthetic plan and its attendant risks and benefits were discussed with the patient/family/POA. Questions were solicited and answers provided to the satisfaction of the patient/family/POA.
[2024-09-23] MEDS: LACTATED RINGERS 1,000 ML 150 ML IV CONT (11:05)
[2024-09-23] MEDS: LACTATED RINGERS 1,000 ML 100 ML IV CONT (13:47)
[2024-09-23] MEDS: cefTRIAXone 2 GM/NS 100 ML 2 GM/100 ML BAG IVPB (15:11)
[2024-09-24] MEDS: LACTATED RINGERS 1,000 ML 100 ML IV CONT ×2 (00:45→10:15)
[2024-09-24 04:15] VITALS: BP 135/81; PULSE 76; RESP 18; TEMP 37.1; O2SAT 98
[2024-09-24 05:11] LABS: Basophils Absolute Auto 0.1 K/mm3 (0.0-0.1); Basophils Percent Auto 0.7 % (0.2-1.2); Eosinophils Absolute Auto 0.2 K/mm3 (0-0.3); Eosinophils Percent Auto 2.3 % (0-4.4); Hematocrit 37.1 % (42.0-52.0); Hemoglobin 12.2 g/dL (14.0-18.0); Immature Granulocyte Absolute 0.17 K/mm3 (0.00-0.031); Immature Granulocyte Percent A 1.9 % (0-0.5); Lymphocytes Absolute Auto 1.36 K/mm3 (0.9-3.2); Mean Corpuscular HGB Conc 32.9 g/dl (32-36); Mean Corpuscular Hemoglobin 30.9 pg (26-34); Mean Corpuscular Volume 93.9 fl (80-100); Mean Platelet Volume 10.3 fl (7.4-10.4); Monocytes Absolute Auto 1.1 K/mm3 (0.1-0.6); Monocytes Percent Auto 12.2 % (2.6-8.5); Neutrophils Absolute Auto 6.2 K/mm3 (1.3-6.7); Neutrophils Percent Auto 67.9 % (45.5-73.1); Platelet Count Result 252 k/mm3 (150-375); Red Blood Count 3.95 M/mm3 (4.6-6.20); Red Cell Distribution Width 13.3 % (11.5-14.5); White Blood Count 9.1 K/mm3 (4.5-10.0)
[2024-09-24 05:21] LABS: Alanine Aminotransferase 97 U/L (6-50); Albumin Level 3.4 g/dL (3.5-5.1); Alkaline Phosphatase 345 U/L (38-126); Anion Gap 7 mmol/L (4-12); Aspartate Amino Transferase 44 U/L (17-59); Bilirubin,Total 0.9 mg/dL (0.2-1.3); Blood Urea Nitrogen 16 mg/dL (9-20); Calcium 8.2 mg/dL (8.4-10.2); Carbon Dioxide 27 mmol/L (22-30); Chloride 104 mmol/L (98-107); Estimated CRCL calculation 56 ml/min; Estimated Glomerular Filt Rate > 60; Glucose 96 mg/dL (65-110); Potassium 3.8 mmol/L (3.4-5.0); Sodium 138 mmol/L (137-145)
[2024-09-24 07:41] VITALS: RESP 18; O2SAT 98
--- NOTE | 2024-09-24 07:50 | P.PNAN_ITS ---
Anes - Prog Note Post-Op Date/Time: 09/24/24 07:50 Cardiovascular status: normal Respiratory status: normal Airway patency: baseline Mental status: baseline Post-Op hydration status: normal Vital Signs: Last Vital Signs Temp 37.1 C 09/24/24 04:15 Pulse 76 09/24/24 04:15 Resp 18 09/24/24 07:41 BP 135/81 09/24/24 04:15 Pulse Ox 98 09/24/24 07:41 O2 Del Method Room Air 09/24/24 07:41 O2 Flow Rate 6 09/20/24 15:37 Pain Score (VAS): 0 I/O: Intake & Output 09/23/24 09/23/24 09/24/24 15:59 23:59 07:59 Intake Total 150 1480 390 Balance 150 1480 390 Laboratory Tests 09/24/24 04:32 09/24/24 04:32 09/24/24 04:32 WBC 9.1 RBC 3.95 L Hgb 12.2 L Hct 37.1 L MCV 93.9 MCH 30.9 MCHC 32.9 RDW 13.3 Plt Count 252 MPV 10.3 Immature Gran % (Auto) 1.9 H Neut % (Auto) 67.9 Lymph % (Auto) 15.0 L [place] % (Auto) 12.2 H Eos % (Auto) 2.3 Baso % (Auto) 0.7 Lymph # (Auto) 1.36 [place] # (Auto) 1.1 H Eos # (Auto) 0.2 Baso # (Auto) 0.1 Abs Immat Gran (auto) 0.17 H Absolute Neuts (auto) 6.2 Absolute Nucleated RBC 0.000 Nucleated RBC % 0.0 Sodium 138 Potassium 3.8 Chloride 104 Carbon Dioxide 27 Anion Gap 7 BUN 16 Creatinine 0.94 Estim Creat Clear Calc 56 Estimated GFR > 60 Glucose 96 Calcium 8.2 L Total Bilirubin 0.9 AST 44 ALT 97 H Alkaline Phosphatase 345 H Total Protein 7.0 Albumin 3.4 L Post-procedural complaints: none Patient Feedback: Patient satisfied with anesthetic care.
[2024-09-24] MEDS: AMOXICILLIN/CLAVULANATE K 875-125 MG TAB 1 TABLET PO (13:00)
--- NOTE | 2024-09-24 13:08 | PM.DS ---
DS: Admitting Diagnosis Discharge Date 09/24/2024 Admitting Diagnosis Gallstones DS: Discharge Diagnosis Discharge Diagnosis (1) Choledocholithiasis: Code(s): K80.50 - Calculus of bile duct without cholangitis or cholecystitis without obstruction Status: Acute Assessment and Plan: CT abd/pelvis, 09/18: 1. Obstructing 1.6 cm likely gallstone at the distal common bile duct with moderate intra and extrahepatic biliary ductal dilation. 2. 5.1 cm fusiform infrarenal abdominal aortic aneurysm. 3. Short segment of nonobstructed proximal sigmoid colon extends into a moderate-sized left inguinal hernia. 4. Marked diverticulosis. 5. Multiple bilateral renal cysts with 2.8 cm exophytic lesion at the left kidney with slightly greater than simple fluid attenuation most likely proteinaceous/hemorrhagic cyst but would solid neoplasm could not be excluded. Could consider pre and postcontrast MRI or CT for further evaluation. GI consulted, Diana REYES. provided the following recs: To treat potential cholangitis -> start ceftriaxone 2 G daily Plan for ERCP (09/20) with goal for stone extraction. If not feasible, plan for plastic biliary stent for decompression and will need referral to [facility] for stone extraction Analgesics p.r.n., antiemetic p.r.n. -->ERCP performed on 09/20 with sphincterotomy and biliary drainage after biliary stent placement Per GI note 09/21 & 09/23, plan for Monday (09/23) will proceed with another ercp but this time using cholangioscopy to assess if retained stones that may need EHL -->Second ERCP successful. Plan for D/C per Dr. Newman (spoke to him on the phone) since stable overnight. Pt continues to denies sx. (2) Elevated liver enzymes: Code(s): R74.8 - Abnormal levels of other serum enzymes Status: Acute Assessment and Plan: Secondary to choledocholithiasis, ERCP performed on 09/20 with stent placement Labs: 09/19: Total bilirubin 1.7, AST 61, ALT 130, alk-phos 533 09/20: Total bilirubin 3.2, AST 237, ALT 253, alk-phos 614 - prior to ERCP 09/21: Total bilirubin 1.3, AST 105, ALT 191, alk-phos 549 - post ERCP 5/4: Total bilirubin 0.8, AST 39, ALT 127, alk-phos 402 - post ERCP day x1 5/5: Total bilirubin 0.7, AST 35, ALT 107, alk-phos 377 - post ERCP day x2 5/6: Total bilirubin 0.9, AST 44, ALT 97, alk-phos 345 - post ERCP (2) day x1 -F/u with Dr. Garcias office and PCP. (3) Bacteremia: Code(s): R78.81 - Bacteremia Status: Acute Assessment and Plan: Blood cultures yielding gram negative bacilli isolated -->Pt on abx coverage of ceftriaxone 2g daily, will continue until able to take PO again then switch to PO abx -Pt hemodynamically stable, WBC downtrending -D/C with Augmentin TID PO x4 more days, pt aware. DS: Summary Hospital Course Reason for hospitalization: Gallstones Hospital Course: Patient admitted to the hospital for outpatient GI (via [facility]) abnormal imaging and abdominal pain. Patient with a history of gallstones with cholecystectomy x10 years ago. Patient describes episodes of abdominal pain to follow 1-2 hours after eating. Patient said the last episode he had was over the weekend. Patient had an outside CT of the abdomen and pelvis on September 18 which yielded an obstructing 1.6 cm likely gallstone of the distal common bile duct with moderate intra and extrahepatic biliary duct dilation. Patient was also made aware of the fusiform infrarenal 5.1 cm abdominal aortic aneurysm via same CT, states that he has not been diagnosed with this before. Patient has a hx of smoking and states all the men and my family have this . Educated to follow up with his primary care provider for additional imaging and maintenance of this, pt agreeable. Patient asymptomatic including CP, SOB, and back pain. ED workup showed: No leukocytosis, hemoglobin 13.1 (previously 13.5 on 09/18/2024), INR 1.2, creatinine 1.01 and GFR >60, total bilirubin 1.7, AST 61, ALT 130, alk-phos 533, lipase within normal limits. Blood cultures were performed in the emergency department on 09/19 and resulted positive for Klebsiella pneumoniae on, ceftriaxone 2 g daily IV was ordered for cholangitis previously, and was continued due to this new bacteremia; patient to be discharged on Augmentin t.i.d. for the remaining 4 days to complete a 10 day course. Since admission patient underwent 2 ERCP procedures. The 1st ERCP was performed on 09/20 for goal of stone extraction. Stone was not extracted but a biliary stent was placed for decompression. Status post this ERCP lab work, particularly liver enzymes and WBC, improved significantly. Second ERCP procedure was performed on 09/23 which was successful using lithotripsy to break up the stone. Liver enzymes continue to get better. All other labs and vital signs stable. Patient tolerated diet and is complaining of no other sx. Spoke to Dr. Garcias on the phone and he is agreeable with discharge. Time Spent with Patient Time attestation: Total time spent providing and/or coordinating discharge services: Exam Const: General: comfortable and no acute distress HENMT: Face/Nose/Sinus: Normal nares present Mouth: Yes moist mucous membranes Eyes: General: appearance normal, both eyes and all related structures Sclera: sclerae normal Neck: Neck: supple and no JVD Carotids: no bruits Resp: Effort & Inspection: normal respiratory effort Auscultation: clear to auscultation bilaterally Cardio: Rate: regular rate Rhythm: regular rhythm GI: Inspection: non-distended GI Palp: Yes Soft to palpation and No Tenderness to palpation present (GI) Auscultation: normal bowel sounds Skin: General skin exam: normal color and no rashes or lesions noted Wounds: no wounds Neuro: General: gait normal Motor exam (neuro): Normal motor muscle tone present throughout Sensory Exam: normal sensation Extrem: General: normal to inspection Psych: Mental Status: mental status grossly normal Affect: normal affect DS: Data Data Completed and Pending Labs on day of discharge: Labs from last 24 hours 09/24/24 04:32 WBC 9.1 RBC 3.95 L Hgb 12.2 L Hct 37.1 L MCV 93.9 MCH 30.9 MCHC 32.9 RDW 13.3 Plt Count 252 MPV 10.3 Immature Gran % (Auto) 1.9 H Neut % (Auto) 67.9 Lymph % (Auto) 15.0 L [place] % (Auto) 12.2 H Eos % (Auto) 2.3 Baso % (Auto) 0.7 Lymph # (Auto) 1.36 Craig # (Auto) 1.1 H Eos # (Auto) 0.2 Baso # (Auto) 0.1 Abs Immat Gran (auto) 0.17 H Absolute Neuts (auto) 6.2 Absolute Nucleated RBC 0.000 Nucleated RBC % 0.0 Sodium 138 Potassium 3.8 Chloride 104 Carbon Dioxide 27 Anion Gap 7 BUN 16 Creatinine 0.94 Estim Creat Clear Calc 56 Estimated GFR > 60 Glucose 96 Calcium 8.2 L Total Bilirubin 0.9 AST 44 ALT 97 H Alkaline Phosphatase 345 H Total Protein 7.0 Albumin 3.4 L Discharge Plan Discharge Attending physician on discharge: Yessica Alcantara Consulting providers: Jaime Ortiz Discharging Clinician: Yessica Alcantara Anticipated Discharge Date/Time: 09/24/24 14:00 Patient Disposition: Home Activity: may shower and unlimited Diet: low fat Discharge Instructions: 1. Follow-up with your primary care provider to update them about this admission for gallstones and newly diagnosed abdominal aortic aneurysm. 2. Follow-up with Dr. Garcias (gallbladder doctor) 3. Take x4 more days of the antibiotics (Augmentin aka Amoxicillin/Clavulanate) that I sent to your pharmacy, start with a dose this evening and continue until all of the pills are gone, you will take this three times a day. 4. Come back to the ER for any uncontrolled abdominal pain. Thank you for choosing [facility] Patient Instructions: Antibiotic Form, Amoxicillin/Clavulanate Potassium (By mouth), Gallstones (GEN) Patient Language: Sudanese Stand Alone Forms: General Discharge Information Follow-up/Referrals: Magdi Booker MD [Primary Care Provider] - 4 Weeks (Follow-up hospital visit and abdominal aortic aneurysm.) Chaitanya Lu MD [Physician] - 2 Weeks (Post ERCP procedure/gallstone) Discharge Medications: New amoxicillin-pot clavulanate 875-125 mg tablet 1 tablet PO TID Qty: 11 0RF Rx Instructions: Take x4 more days of this medication, starting this evening with your first dose. Take until all pills are gone. Date of admission: 09/21/24 13:33 Primary Care Provider: Magdi Booker Admitting Provider: Renita Taveras Attending physician on admission: Renita Taveras Condition: Stable Quality VTE Prophylaxis VTE prophylaxis: mechanical ordered Hospitalist MIPS Heart Failure (Exclusion) Patient has history of Heart Transplant or Left Ventricular Assistive Device?: No IF YES, STOP HERE Heart Failure (Qualifier) Patient has current or prior documentation of LVEF less than or equal to 40%, or mod/servere depressed LVSF?: No IF NO, STOP HERE
--- NOTE | 2024-09-24 13:18 | PCNFU ---
Nutrition Follow-Up Complete: Inadequate energy intake related to NPO status and altered GI function as evidenced by diet order and pt report goal: Diet order PO intake 50% or greater Patient is meeting goal. No new goal. Pt current nutrition is Low Fat with Ensure Enlive. Last recorded weight is 67.8 kg, stable Bowel Motility: +BM reported 5/6 Labs Reviewed: Alb 3.4, Hct 37.1, Hgb 12.2 Meds Noted: Augmentin Skin: WNL Additional Notes: Diet order has advanced to low fat diet with Ensure Enlive BID (350 kcal and 20 gm protein). Oral intake has been > 75% of meals. Agree with diet orders. Monitor diet order, intake, wt, labs. Follow up in 7 days.
--- NOTE | 2024-09-24 16:11 | P.PNGI_ITS ---
Progress Note: A&P Assessment and Plan (1) Choledocholithiasis: Code(s): K80.50 - Calculus of bile duct without cholangitis or cholecystitis without obstruction Status: Acute Assessment and Plan: bacteremia + klebsiella with elevated liver enzymes c/w cholangitis treated again yesterday with cholangioscopy and EHL doing great, no more leukocytosis and tolerating diet he can go home today and complete oral antibiotic then follow-up office in 3-4 weeks liver enzymes coming down with normal bilirubin (2) Klebsiella sepsis: Code(s): A41.59 - Other Gram-negative sepsis Status: Acute Assessment and Plan: on abx (3) Cholangitis: Code(s): K83.09 - Other cholangitis Status: Acute Assessment and Plan: s/p ercp and EHL with cholangioscopy will complete treatment with oral abx (4) Elevated liver enzymes: Code(s): R74.8 - Abnormal levels of other serum enzymes Status: Acute Assessment and Plan: trending down (5) Epigastric pain: Code(s): R10.13 - Epigastric pain Status: Acute Assessment and Plan: resolved Subjective Date/time seen: 09/24/24 12:10 Interval history: ercp yesterday with cholangioscopy and EHL of large stones doing great, no pain and tolerating diet he is going home Review of Systems Review of Systems: All systems reviewed & are unremarkable except as noted in HPI and below Exam Const: General: comfortable and no acute distress HENMT: Face/Nose/Sinus: Normal nares present Eyes: General: appearance normal, both eyes and all related structures Neck: Neck: supple Resp: Auscultation: clear to auscultation bilaterally Cardio: Rate: regular rate Rhythm: regular rhythm GI: Inspection: non-distended GI Palp: Yes Soft to palpation and No Tenderness to palpation present (GI) Auscultation: normal bowel sounds Skin: General skin exam: normal color Neuro: Speech: normal speech Extrem: General: normal to inspection Psych: Mental Status: mental status grossly normal Objective Data Vital Signs Vital Signs: Vital Signs - 24 hr 09/23/24 19:48 09/23/24 20:00 09/24/24 04:15 Temperature 99.4 F 98.8 F Pulse Rate 88 76 Respiratory Rate 18 18 Blood Pressure 118/74 135/81 Pulse Oximetry 97 98 Oxygen Delivery Room Air 09/24/24 07:41 Temperature Pulse Rate Respiratory Rate 18 Blood Pressure Pulse Oximetry 98 Oxygen Delivery Room Air Intake/Output Intake/Output: Intake & Output 09/21/24 09/22/24 09/23/24 09/24/24 23:59 23:59 23:59 23:59 Intake Total 3334.2 1510 1630 2418 Balance 3334.2 1510 1630 2418 Meds/Results Radiology Results: ITS Impressions Endo Retro Cholangiopancreatogram 09/23/24 16:28 IMPRESSION: 1. Fluoroscopy utilized during likely extraction of an obstructing common bile duct stone. Please refer to the ERCP procedure note for additional details. Labs Labs: Laboratory Results - last 24 hr 09/24/24 04:32 WBC 9.1 RBC 3.95 L Hgb 12.2 L Hct 37.1 L MCV 93.9 MCH 30.9 MCHC 32.9 RDW 13.3 Plt Count 252 MPV 10.3 Immature Gran % (Auto) 1.9 H Neut % (Auto) 67.9 Lymph % (Auto) 15.0 L [place] % (Auto) 12.2 H Eos % (Auto) 2.3 Baso % (Auto) 0.7 Lymph # (Auto) 1.36 [place] # (Auto) 1.1 H Eos # (Auto) 0.2 Baso # (Auto) 0.1 Abs Immat Gran (auto) 0.17 H Absolute Neuts (auto) 6.2 Absolute Nucleated RBC 0.000 Nucleated RBC % 0.0 Sodium 138 Potassium 3.8 Chloride 104 Carbon Dioxide 27 Anion Gap 7 BUN 16 Creatinine 0.94 Estim Creat Clear Calc 56 Estimated GFR > 60 Glucose 96 Calcium 8.2 L Total Bilirubin 0.9 AST 44 ALT 97 H Alkaline Phosphatase 345 H Total Protein 7.0 Albumin 3.4 L
== END 2024-09-24 14:10 | disposition home or self-care (01) | DRG 445 ==
LOC: ANHED 11:43 → ANH2MED 13:23
PROVIDERS: Internal Medicine Gastroenterology; Student in an Organized Health Care Education/Training Program; Admitting Provider Internal Medicine; Emergency Provider Emergency Medicine; PCP Family Medicine
PROC: 0F798DZ Dilation of Common Bile Duct with Intraluminal Device, Via Natural or Artificial Opening Endoscopic (ICD-10-PCS; CPT 43260; principal; 2024-09-20 13:00)
PROC: 0FPB8DZ Removal of Intraluminal Device from Hepatobiliary Duct, Via Natural or Artificial Opening Endoscopic (ICD-10-PCS; CPT 43260; principal; 2024-09-23 15:00)
DX: K80.31 Calculus of bile duct with cholangitis, unspecified, with obstruction (principal); R78.81 Bacteremia; B96.1 Klebsiella pneumoniae [K. pneumoniae] as the cause of diseases classified elsewhere; E03.9 Hypothyroidism, unspecified; I71.40 Abdominal aortic aneurysm, without rupture, unspecified; I25.10 Atherosclerotic heart disease of native coronary artery without angina pectoris; I10 Essential (primary) hypertension; I25.2 Old myocardial infarction; R74.8 Abnormal levels of other serum enzymes; Z90.49 Acquired absence of other specified parts of digestive tract; Z87.891 Personal history of nicotine dependence; Z95.5 Presence of coronary angioplasty implant and graft
CPT/HCPCS: 36415; 74329; 80053; 81001; 83690; 85025; 85610; 85730; 87040; 87186; 96361; 96374; 96375; 96376; 99285; A9270; C1876; G0378; J0330; J0696; J0780; J2003; J2270; J2405; J2704; J7030; J7120; Q9966